=== PATIENT | female | born 1965 | race Caucasian/White ===

== ENCOUNTER → 2019-08-09 16:53 | Outpatient (CLI) | payer MEDICAID, SELFPAY ==
--- NOTE | ~2019-08-09 | XR_ITS ---
EXAMINATION: XR chest 2V DATE: 08/09/2019 17:23 INDICATION: Shortness of breath and cough TECHNIQUE: PA and lateral views of the chest are obtained. COMPARISON: 12/11/2018 FINDINGS: The lungs are free of acute opacities. There is no pleural effusion or pneumothorax. The ca rdiomediastinal silhouette is normal. There is moderate thoracic spondylosis. IMPRESSION: 1. No acute cardiopulmonary abnormality. Reviewed, dictated and finalized at location A.
== END ==
PROVIDERS: PCP Family Medicine; Visit Provider Family Medicine
DX: R06.02 Shortness of breath (principal); R05 Cough
CPT/HCPCS: 71046

== ENCOUNTER 2019-08-14 14:13 | Outpatient (CLI) | payer MEDICAID, SELFPAY ==
--- NOTE | 2019-08-19 11:29 | WPDPFTINT ---
PFT Interpretation PFT Interpretation: This PFT met all criteria for ATS standards and reproducibility FEV/FVC post bronchodilator 52% of predicted FEV1 52% or 1.42 liters FVC 76% or 2.73 liters FVC improved by 300 ml and 12% post bronchodilator TLC 105% RV 166% RV/TLC 58% DLCO 50% of predicted when adjusted for alveolar volume but not adjusted for hemoglobin Flow volume loops showed significant expiratory coving Impression: Moderate to severe airflow obstruction with good response to bronchodilators and air trapping. Diffusion capacity was moderately reduced. This pattern may fit that of Asthma or COPD or combination thereof. Clinical correlation is advised.
--- NOTE | 2019-08-19 11:33 | WPDSIXMINUTE ---
Six Minute Walk Six Minute Walk: The patients O2 sats started at 95% and dropped as low as 93% Total walk distance 335.28 meters conclusion: This patient does not qualify for home oxygen therapy
== END 2019-08-14 14:14 | disposition home or self-care (01) ==
PROVIDERS: PCP Family Medicine; Visit Provider Internal Medicine Critical Care Medicine
DX: J44.9 Chronic obstructive pulmonary disease, unspecified (principal); R06.02 Shortness of breath
CPT/HCPCS: 94060; 94618; 94726; 94729

== ENCOUNTER 2020-08-25 17:49 | Emergency (ER) | payer OTHER, SELFPAY ==
--- NOTE | ~2020-08-25 | XR_ITS ---
EXAMINATION: XR chest 1V EXAM DATE: 08/25/2020 18:53 INDICATION: Cough and fever since Tuesday. Hypertension, COPD. TECHNIQUE: Portable AP frontal chest x-ray was obtained. Comparison is made to prior examination from 08/09/2019. FINDINGS: Small amount right basilar reticulonodular airspace disease suspected, could be acute infec tious process. No confluent consolidation, pneumothorax or pleural effusion suspected. Cardiomediasti nal silhouette is normal. There are no osseous abnormalities identified. IMPRESSION: Small amount of right basilar reticulonodular airspace disease which could be acute infec tious process. Reviewed, dictated and finalized at location A. IMPRESSION: Small amount of right basilar reticulonodular airspace disease whic h could be acute infectious process.
[2020-08-25 17:52] VITALS: BP 121/87; PULSE 94; RESP 20; TEMP 37.8; O2SAT 92
[2020-08-25 18:53] LABS: Basophils Percent Auto 0.4 % (0.2-1.2); Eosinophils Percent Auto 0.1 % (0-4.4); Hemoglobin 15.6 g/dL (12.0-15.0); Immature Granulocyte Absolute 0.06 K/mm3 (0.00-0.031); Immature Granulocyte Percent A 0.9 % (0-0.5); Lymphocytes Absolute Auto 1.77 K/mm3 (0.9-3.2); Lymphocytes Percent Auto 25.3 % (18.3-44.2); Mean Corpuscular HGB Conc 33.2 g/dl (32-36); Mean Corpuscular Hemoglobin 29.8 pg (26-34); Mean Corpuscular Volume 89.9 fl (80-100); Mean Platelet Volume 10.1 fl (7.4-10.4); Monocytes Absolute Auto 0.6 K/mm3 (0.1-0.6); Neutrophils Absolute Auto 4.6 K/mm3 (1.3-6.7); Neutrophils Percent Auto 65.3 % (45.5-73.1); Platelet Count Result 148 k/mm3 (150-375); Red Blood Count 5.23 M/mm3 (4.2-5.4)
[2020-08-25 19:08] LABS: Alanine Aminotransferase 56 U/L (4-35); Albumin Level 4.2 g/dL (3.5-5.1); Alkaline Phosphatase 78 U/L (38-126); Anion Gap 8 mmol/L (8-16); Aspartate Amino Transferase 46 U/L (14-36); Bilirubin,Total 0.4 mg/dL (0.2-1.3); Blood Urea Nitrogen 15 mg/dL (7-17); Calcium 8.6 mg/dL (8.4-10.2); Carbon Dioxide 24 mmol/L (22-30); Chloride 102 mmol/L (98-107); Estimated CRCL calculation 75 ml/min; Estimated Glomerular Filt Rate > 60; Glucose 212 mg/dL (65-110); Potassium 4.2 mmol/L (3.4-5.0); Sodium 134 mmol/L (137-145)
--- NOTE | 2020-08-25 20:01 | ED.GENADULT ---
HPI - General Adult General Chief complaint: Fever Stated complaint: Fever, Cough Time Seen by Provider: 08/25/20 19:57 History of Present Illness HPI narrative: 75-year-old female presents the emergency room with chief complaint of fever and cough. The patient reports that she has not been vaccinated for COVID-19 reports she has history of COPD and asthma patient reports she smokes cigarettes. The patient states that for the last several days she has had a cough that has been sputum reports she has had fever body aches and generalized weakness. Patient reports that it is worsened with the cough improved with rest Related Data Home Medications Medication Instructions Recorded Confirmed albuterol sulfate 90 mcg/actuation 1 inhalation INHALATION Q4-6H PRN 07/06/19 breath activated powder inhaler amlodipine 10 mg tablet 10 mg PO DAILY 07/06/19 budesonide-formoterol HFA 160 2 puff INHALATION Q12H 07/06/19 mcg-4.5 mcg/actuation aerosol inhaler lisinopril 30 mg tablet 30 mg PO DAILY 07/06/19 oxycodone-acetaminophen 5 mg-325 1 tablet PO Q4H PRN 07/06/19 mg tablet Allergies Allergy/AdvReac Type Severity Reaction Status Date / Time No Known Allergies Allergy Mild Verified 08/25/20 17:54 Review of Systems Review of Systems: Narrative: A 10 system review of systems was completed on the patient and is negative except for what is stated in the HPI. Nursing and ancillary documentation was reviewed. PMFSH Past Medical History Medical History Chronic obstructive pulmonary disease Hypertension Shortness of breath on exertion Tobacco abuse Surgical History Surgical History H/O: hysterectomy History of tubal ligation Hx of tonsillectomy Social History Social History Smoking packs per day: 0.5 Smoking cigarettes per day: 10.0 Smoking status: Current every day smoker Tobacco type: cigarettes Gender identity (if verbalized by the patient): Female Exam Narrative: Exam Narrative: GENERAL: Well-appearing, well-nourished, and in no acute distress. HEAD: Normocephalic, atraumatic. EYES: PERRLA and EOMI. ENT: Nares clear, no rhinorrhea or epistaxis. Mucous membranes moist. NECK: Supple. CHEST: Clear to auscultation. No respiratory distress. HEART: Regular rate and rhythm. No murmur heard. Normal peripheral pulses. ABDOMEN: Soft, nontender, nondistended, normal active bowel sounds. EXTREMITIES: Normal range of motion. No edema. SKIN: Warm, dry, no rash. NEURO: No focal deficits. Alert and oriented x3. PSYCH: Normal mood and affect. Course Vital Signs Vital signs: Vital Signs Temperature 37.8 C H 08/25/20 17:52 Pulse Rate 94 08/25/20 17:52 Respiratory Rate 20 08/25/20 17:52 Blood Pressure 121/87 08/25/20 17:52 Pulse Oximetry 92 08/25/20 17:52 Temperature 37.8 C H 08/25/20 17:52 Pulse Rate 94 08/25/20 17:52 Respiratory Rate 20 08/25/20 17:52 Blood Pressure 121/87 08/25/20 17:52 Pulse Oximetry 92 08/25/20 17:52 Medical Decision Making Vital Signs Vital Signs: Vital Signs Temperature 37.8 C H 08/25/20 17:52 Pulse Rate 94 08/25/20 17:52 Respiratory Rate 20 08/25/20 17:52 Blood Pressure 121/87 08/25/20 17:52 Pulse Oximetry 92 08/25/20 17:52 Temperature 37.8 C H 08/25/20 17:52 Pulse Rate 94 08/25/20 17:52 Respiratory Rate 20 08/25/20 17:52 Blood Pressure 121/87 08/25/20 17:52 Pulse Oximetry 92 08/25/20 17:52 Lab Data Result diagrams: 08/25/20 18:46 08/25/20 18:46 Labs: Lab Results 08/25/20 08/25/20 Range/Units 18:46 18:46 WBC 7.0 (4.5-10.0) K/mm3 RBC 5.23 (4.2-5.4) M/mm3 Hgb 15.6 H (12.0-15.0) g/dL Hct 47.0 (37.0-47.0) % MCV 89.9 (80-100) fl MCH 29.8 (26-34) pg MCHC
[2020-08-25] MEDS: DOXYCYCLINE HYCLATE 100 MG TABLET PO (21:09)
[2020-08-25] MEDS: predniSONE 20 MG TABLET 60 MG PO (21:09)
[2020-08-25] MEDS: BENZONATATE 100 MG CAPSULE 200 MG PO (21:09)
[2020-08-25 21:14] VITALS: BP 108/82; PULSE 91; RESP 18; O2SAT 94
[2020-08-26 17:52] LABS: SARS-CoV-2 RNA PCR Positive
== END 2020-08-25 21:15 | disposition home or self-care (01) ==
LOC: ANHED 20:12
PROVIDERS: Emergency Medicine; Emergency Provider Emergency Medicine; PCP Family Medicine
DX: U07.1 COVID-19 (principal); J12.82 Pneumonia due to coronavirus disease 2019; J44.9 Chronic obstructive pulmonary disease, unspecified; I10 Essential (primary) hypertension; F17.210 Nicotine dependence, cigarettes, uncomplicated
CPT/HCPCS: 36415; 71045; 80053; 85025; 99283; A9270; C9803; J7512; U0003; U0005

== ENCOUNTER → 2020-09-12 01:28 | Outpatient (CLI) | payer OTHER, SELFPAY ==
[2020-09-13 02:16] LABS: SARS-CoV-2 RNA PCR Negative
== END ==
PROVIDERS: PCP Family Medicine; Visit Provider Physician Assistant
DX: R68.89 Other general symptoms and signs (principal); Z20.822 Contact with and (suspected) exposure to COVID-19
CPT/HCPCS: C9803; U0003; U0005

== ENCOUNTER 2020-11-18 16:15 | Emergency (ER) | payer OTHER, SELFPAY ==
[2020-11-18 16:28] VITALS: BP 143/83; PULSE 79; RESP 20; TEMP 37; O2SAT 97
--- NOTE | 2020-11-18 16:31 | ED.FEMALEGU ---
HPI - Female Genitourinary General Chief complaint: Urogenital-Female Stated complaint: UTI Source: patient and RN notes reviewed Mode of arrival: ambulatory Limitations: no limitations History of Present Illness HPI Narrative: Tameka is a 55-year-old female arrived ambulatory to the [facility] today with complaints of urinary frequency and painful urination starting on Tuesday. Patient states she was just treated 2 months ago with Macrobid and states she doesn't feel like she ever got over it. She has had continued dysuria and frequency off and on over the last 2 months. Patient denies fever denies chills. States she has been taking Azo since Tuesday. MD elicited complaint: dysuria Related Data Home Medications Medication Instructions Recorded Confirmed albuterol sulfate 90 mcg/actuation 1 inhalation INHALATION Q4-6H PRN 07/06/19 breath activated powder inhaler amlodipine 10 mg tablet 10 mg PO DAILY 07/06/19 budesonide-formoterol HFA 160 2 puff INHALATION Q12H 07/06/19 mcg-4.5 mcg/actuation aerosol inhaler lisinopril 30 mg tablet 30 mg PO DAILY 07/06/19 oxycodone-acetaminophen 5 mg-325 1 tablet PO Q4H PRN 07/06/19 mg tablet Allergies Allergy/AdvReac Type Severity Reaction Status Date / Time No Known Allergies Allergy Mild Verified 11/18/20 17:11 Review of Systems Review of Systems: CONSTITUTIONAL: Denies body aches, fever, chills, or sweats. EYES: Denies visual changes, redness, or discharge. ENT: Denies rhinorrhea, congestion, sore throat, or otalgia. CARDIOVASCULAR: Denies chest pain, palpitations, or edema. RESPIRATORY: Denies cough or dyspnea. GASTROINTESTINAL: Denies abdominal pain, nausea, vomiting, or diarrhea. GENITOURINARY: + dysuria, + frequency, denies hematuria. SKIN: Denies rash, itching, or wounds. MUSCULOSKELETAL: Denies back pain, joint pain, or myalgia. NEUROLOGIC: Denies headache, numbness, tingling, or weakness. PSYCH: Denies depression or anxiety. [facility] Past Medical History Medical History Chronic obstructive pulmonary disease Hypertension Shortness of breath on exertion Tobacco abuse Surgical History Surgical History H/O: hysterectomy History of tubal ligation Hx of tonsillectomy Social History Social History Smoking packs per day: 0.5 Smoking cigarettes per day: 10.0 Smoking status: Current every day smoker Tobacco type: cigarettes Gender identity (if verbalized by the patient): Female Comments At time of signature, I have reviewed and agree with nursing past medical, surgical, social and family history unless otherwise noted. Please see nursing chart for further information. There is no relevant family history pertinent to the presenting complaint Exam Narrative: GENERAL: Well-appearing, well-nourished, and in no acute distress. HEAD: Normocephalic, atraumatic. EYES: EOMI. No redness or drainage. Conjunctivae normal. ENT: Mucous membranes pink and moist. Nares clear. No rhinorrhea. TMs normal bilaterally. Throat normal. Uvula midline. NECK: Normal AROM. Supple. No lymphadenopathy. CHEST: No respiratory distress. Clear to auscultation.. ABDOMEN: Soft, nontender, nondistended, negative for CVA tenderness bilaterally. MUSCULOSKELETAL: No bony tenderness. EXTREMITIES: Normal range of motion. No edema. SKIN: Warm, dry, no rash. Capillary refill normal. Normal skin turgor. NEURO: No focal deficits. Alert and oriented x3. Gait steady. PSYCH: Normal affect. No signs of depression or anxiety. Course Vital Signs Vital signs: Vital Signs Temperature 37.0 C 11/18/20 16:28 Pulse Rate 79 11/18/20 16:28 Respiratory Rate 20 11/18/20 16:28 Blood Pressure 143/83 H 11/18/20 16:28 Pulse Oximetry 97 11/18/20 16:28 Temperature 37.0 C 11/18/20 16:28 Pulse Rate 79
== END 2020-11-18 17:16 | disposition home or self-care (01) ==
PROVIDERS: Emergency Provider Nurse Practitioner Family; PCP Family Medicine
DX: N39.0 Urinary tract infection, site not specified (principal); F17.210 Nicotine dependence, cigarettes, uncomplicated; J44.9 Chronic obstructive pulmonary disease, unspecified; I10 Essential (primary) hypertension
CPT/HCPCS: 81003; 87077; 87086; 87088; 87186; 99213; G0463

== ENCOUNTER 2021-09-17 10:34 | Outpatient (CLI) | payer OTHER, SELFPAY ==
--- NOTE | ~2021-09-17 | MM_ITS ---
EXAMINATION: MM screening mohit BI w yasmin HISTORY: Screening mammogram, family history of breast cancer in her mother. TECHNIQUE: Craniocaudal and mediolateral oblique 3-D tomosynthesis images were obtained and synthetic 2-D images were generated. CAD analysis was submitted and interpreted. COMPARISON: 01/26/2019, 12/29/2018 BREAST PARENCHYMAL COMPOSITION: There are scattered areas of fibroglandular density. FINDINGS: There is no suspicious mass, calcification, or architectural distortion to suggest malignan cy in either breast. There has been no suspicious interval change. IMPRESSION: 1. No mammographic evidence of malignancy. 2. Recommend routine screening mammography in one year. BI-RADS Category 1: Negative Reviewed, dictated and finalized at location A.
== END 2021-09-17 10:35 | disposition home or self-care (01) ==
PROVIDERS: PCP Family Medicine; Visit Provider Physician Assistant
DX: Z12.31 Encounter for screening mammogram for malignant neoplasm of breast (principal)
CPT/HCPCS: 77063; 77067

== ENCOUNTER 2022-08-13 14:28 | Emergency (ER) | payer MEDICAID, SELFPAY ==
[2022-08-13 14:30] VITALS: BP 134/90; PULSE 86; RESP 18; TEMP 36.2; O2SAT 98
--- NOTE | 2022-08-13 14:56 | ED.FEMALEGU ---
HPI - Female Genitourinary General Chief complaint: Urogenital-Female Stated complaint: uti symptoms Time Seen by Provider: 08/13/22 14:51 Source: patient and RN notes reviewed Mode of arrival: ambulatory Limitations: no limitations History of Present Illness HPI Narrative: Patient presents today with a 10 day history of urinary frequency and dysuria. Denies any additional symptoms to include abdominal pain, flank pain, fever, nausea vomiting. She has been taking azo for the past 5 days. States symptoms began after she had intercourse her after being celibate for the past 3 years. Related Data Home Medications Medication Instructions Recorded Confirmed albuterol sulfate 90 mcg/actuation 1 inhalation inhalation Q4-6H PRN 07/06/19 08/13/22 breath activated powder inhaler Shortness Of Breath amlodipine 10 mg tablet 10 mg PO DAILY 07/06/19 08/13/22 budesonide-formoterol HFA 160 2 puff inhalation Q12H 07/06/19 08/13/22 mcg-4.5 mcg/actuation aerosol inhaler (Symbicort) lisinopril 30 mg tablet 30 mg PO DAILY 07/06/19 08/13/22 diclofenac sodium 75 mg 75 mg PO DAILY 11/18/20 08/13/22 tablet,delayed release ipratropium bromide 17 2 puff inhalation TID 11/18/20 08/13/22 mcg/actuation HFA aerosol inhaler (Atrovent HFA) atorvastatin 40 mg tablet 40 mg PO HS 08/13/22 08/13/22 empagliflozin 25 mg tablet 25 mg PO DAILY 08/13/22 08/13/22 (Jardiance) liraglutide 0.6 mg/0.1 mL (18 mg/3 1.2 mg subcut DAILY 08/13/22 08/13/22 mL) subcutaneous pen injector (Victoza 2-Tyson) losartan 50 mg-hydrochlorothiazide 1 tablet PO DAILY 08/13/22 08/13/22 12.5 mg tablet venlafaxine 75 mg capsule,extended 75 mg PO DAILY 08/13/22 08/13/22 release 24 hr Allergies Allergy/AdvReac Type Severity Reaction Status Date / Time No Known Allergies Allergy Mild Verified 08/13/22 14:44 Review of Systems Review of Systems: CONSTITUTIONAL: Denies body aches, fever, chills, or sweats. EYES: Denies visual changes, redness, or discharge. ENT: Denies rhinorrhea, congestion, sore throat, or otalgia. CARDIOVASCULAR: Denies chest pain, palpitations, or edema. RESPIRATORY: Denies cough or dyspnea. GASTROINTESTINAL: Denies abdominal pain, nausea, vomiting, or diarrhea. GENITOURINARY: + dysuria, frequency. SKIN: Denies rash, itching, or wounds. MUSCULOSKELETAL: Denies back pain, joint pain, or myalgia. NEUROLOGIC: Denies headache, numbness, tingling, or weakness. PSYCH: Denies depression or anxiety. [facility] Past Medical History Medical History (Updated 08/13/22 @ 15:00 by Thelma Myers, [employer], ) Chronic obstructive pulmonary disease Diabetes Hypertension Shortness of breath on exertion Tobacco abuse Surgical History Surgical History H/O: hysterectomy History of tubal ligation Hx of tonsillectomy Social History Social History Smoking packs per day: 0.5 Smoking cigarettes per day: 10.0 Smoking status: Current every day smoker Tobacco type: cigarettes Gender identity (if verbalized by the patient): Female Comments At time of signature, I have reviewed and agree with nursing past medical, surgical, social and family history unless otherwise noted. Please see nursing chart for further information. There is no relevant family history pertinent to the presenting complaint Exam Narrative: GENERAL: Well-appearing, well-nourished, and in no acute distress. HEAD: Normocephalic, atraumatic. EYES: EOMI. No redness or drainage. Conjunctivae normal. ENT: Mucous membranes pink and moist. NECK: Normal AROM. CHEST: No respiratory distress. Clear to auscultation. HEART: Regular rate and rhythm. No murmur appreciated. ABDOMEN: Soft, nontender, nondistended, normal active bowel sounds. EXTREMITIES: Normal range of motion. No edema. SKIN: Warm, dry, no rash. Capillary refill normal. Normal
== END 2022-08-13 15:05 | disposition home or self-care (01) ==
PROVIDERS: Emergency Provider Nurse Practitioner; PCP Physician Assistant
DX: N30.01 Acute cystitis with hematuria (principal); F17.210 Nicotine dependence, cigarettes, uncomplicated; J44.9 Chronic obstructive pulmonary disease, unspecified; E11.9 Type 2 diabetes mellitus without complications; I10 Essential (primary) hypertension
CPT/HCPCS: 81003; 87077; 87086; 87186; 99213; G0463

== ENCOUNTER 2024-12-20 09:22 | Emergency (ER) | payer SELFPAY ==
--- NOTE | ~2024-12-20 | XR_ITS ---
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 hx COPD COMPARISON: No comparisons available. Technique: 2 views obtained. Findings: Trace effusions with small basilar infiltrates. No pneumothorax. Heart is normal size. Mediastinal and hilar contours are within normal limits. Bony thorax no acute abnormality. Impression: Early bilateral pneumonia Reviewed, dictated and finalized at location P. GRAPHIC ANALYST Impression: Early bilateral pneumonia
[2024-12-20 09:32] VITALS: BP 111/80; PULSE 92; RESP 18; TEMP 36.9; O2SAT 97
--- NOTE | 2024-12-20 09:48 | ED.URI ---
HPI - URI/Sore Throat General Chief Complaint: Upper Respiratory Infection Stated Complaint: URI Time Seen by Provider: 12/20/24 09:34 Source: patient and RN notes reviewed Mode of arrival: ambulatory Limitations: no limitations History of Present Illness HPI Narrative: 59-year-old female patient with history of COPD and diabetes presents today with a 3-4 day history of subjective fever, fatigue, shortness of breath, productive cough, rhinorrhea, nasal congestion. She has been using NyQuil, Tylenol, and her albuterol inhaler with some short-term improvement. Patient is supposed to be taking is Symbicort as well but cannot afford it due to insurance concerns. Her symptoms have been worsening since onset. Related Data Home Medications ?Medication ?Instructions ?Recorded ?Confirmed ?Last Taken ?Type albuterol sulfate 90 mcg/actuation 1 inhalation inhalation Q4-6H PRN 07/06/19 08/13/22 Unknown History breath activated powder inhaler Shortness Of Breath amlodipine 10 mg tablet 10 mg PO DAILY 07/06/19 08/13/22 Unknown History atorvastatin 40 mg tablet 40 mg PO HS 08/13/22 08/13/22 Unknown History losartan 50 mg-hydrochlorothiazide 1 tablet PO DAILY 08/13/22 08/13/22 Unknown History 12.5 mg tablet venlafaxine 75 mg capsule,extended 75 mg PO DAILY 08/13/22 08/13/22 Unknown History release 24 hr calcium 250 mg tablet mg PO 12/20/24 Unknown History [id number] oil-omega 3-vit E cap PO 12/20/24 Unknown History 50 mg-550 mg-300 mg-30 unit capsule magnesium 200 mg tablet 200 mg PO DAILY 12/20/24 12/20/24 Unknown History mecobalamin (vitamin B12) 1,000 1,000 mcg PO DAILY 12/20/24 12/20/24 Unknown History mcg chewable tablet omega 2-mqi-gyg-fish oil 1,000 mg 1 cap PO DAILY 12/20/24 12/20/24 Unknown History (120 mg-180 mg) capsule (Fish Oil) potassium 75 mg tablet mg PO 12/20/24 Unknown History vitamin E 670 mg (1,000 unit) 670 mg PO DAILY 12/20/24 12/20/24 Unknown History capsule Allergies Allergy/AdvReac Type Severity Reaction Status Date / Time No Known Allergies Allergy Mild Verified 12/20/24 09:31 [facility] Past Medical History Medical History Diabetes Chronic obstructive pulmonary disease Shortness of breath on exertion Tobacco abuse Hypertension Surgical History Surgical History H/O: hysterectomy History of tubal ligation Hx of tonsillectomy Social History Social History Smoking packs per day: 0.5 Smoking cigarettes per day: 10.0 Smoking status: Current every day smoker Tobacco type: cigarettes Gender identity (if verbalized by the patient): Female Comments At time of signature, I have reviewed and agree with nursing past medical, surgical, social and family history unless otherwise noted. Please see nursing chart for further information. There is no relevant family history pertinent to the presenting complaint Exam Narrative: GENERAL: Well-appearing, well-nourished, and in no acute distress. HEAD: Normocephalic, atraumatic. EYES: EOMI. No redness or drainage. Conjunctivae normal. ENT: Mucous membranes pink and moist. Nares congested with rhinorrhea. TMs normal bilaterally. Throat mildly erythematous without edema or exudate. Uvula midline. NECK: Normal AROM. Supple. No lymphadenopathy. CHEST: No respiratory distress. Expiratory wheezing throughout. Slight crackling in the left lower lobe, diminished in the bilateral bases. HEART: Regular rate and rhythm. No murmur appreciated. EXTREMITIES: Normal range of motion. No edema. SKIN: Warm, dry, no rash. Capillary refill normal. Normal skin turgor. NEURO: No focal deficits. Alert and oriented x3. Gait steady. PSYCH: Normal affect. No signs of depression or anxiety. Course Course Level of Care: Express Care Visit Vital Signs Vital signs: Vital Signs Temperature 98.4 F 12/20/24 09:32 Pulse Rate 92 12/20/24 09:32 Respiratory Rate 18 12/20/24 09:32 Blood Pressure 111/80 12/20/24 09:32 Pulse Oximetry 97 12/20/24 09:32 Oxygen Delivery Room Air 12/20/24 09:32 Temperature 98.4 F 12/20/24 09:32 Pulse Rate 92 12/20/24 09:32 Respiratory Rate 18 12/20/24 09:32 Blood Pressure 111/80 12/20/24 09:32 Pulse Oximetry 97 12/20/24 09:32 Oxygen Delivery Room Air 12/20/24 09:32 Reviewed MDM - URI/Sore Throat MDM Narrative Medical decision making narrative: 59-year-old female patient with history of COPD and diabetes presents today with a 3-4 day history of subjective fever, fatigue, shortness of breath, productive cough, rhinorrhea, nasal congestion. She has been using NyQuil, Tylenol, and her albuterol inhaler with some short-term improvement. Patient is supposed to be taking is Symbicort as well but cannot afford it due to insurance concerns. Her symptoms have been worsening since onset. Upon onset, patient has some mild nasal congestion rhinorrhea with a mildly erythematous throat. Expiratory wheezing throughout. Slight crackling in the left lower lobe, diminished in the bilateral bases. Chest x-ray shows early pneumonia in the bilateral bases. Patient was given a DuoNeb, which was helpful. Breath sounds improved after treatment. Patient will be treated for community-acquired pneumonia with 5 days of azithromycin and Augmentin as well as a burst of prednisone for COPD exacerbation. Patient agrees with plan. Vital signs stable. Anticipatory guidance and ED precautions given. Differential Diagnosis Differential diagnosis: Likely upper respiratory infection and other (Pneumonia, COPD exacerbation) Imaging Data Radiologist's impression: ITS Impressions Chest X-Ray 12/20/24 09:56 Impression: Early bilateral pneumonia Critical Care Time Critical Care Time Critical Care Time: No Discharge Plan Discharge Clinical Impression: COPD exacerbation Pneumonia Qualifiers: Pneumonia type: due to unspecified organism Laterality: bilateral Lung location: lower lobe of lung Qualified Code(s): J18.9 - Pneumonia, unspecified organism Patient Disposition: Home Condition: Stable Instructions: Antibiotic Form, Community Acquired Pneumonia (DC) Additional Instructions: Your x-ray showed early pneumonia of the bottoms of both of your lungs. Please take both antibiotics at the same time as prescribed. Take the prednisone daily in the morning. Continue your albuterol inhaler as previously prescribed. [facility] regarding a new primary care provider. Go to the ER if symptoms worsen. Patient Language: Vietnamese Prescriptions: New amoxicillin-pot clavulanate 875-125 mg tablet 1 tablet PO Q12H 5 Days Qty: 10 0RF azithromycin 250 mg tablet 250 mg PO DAILY Qty: 6 0RF Rx Instructions: take 500 mg today (day 1), then 250 mg daily on days 2-5. prednisone 50 mg tablet 50 mg PO DAILY 5 Days Qty: 5 0RF albuterol sulfate 90 mcg/actuation HFA aerosol inhaler 2 inh inhalation Q4-6H PRN (Reason: shortness of breath or wheezing) Qty: 8.5 0RF No Action atorvastatin 40 mg tablet 40 mg PO HS venlafaxine 75 mg capsule,extended release 24hr 75 mg PO DAILY losartan-hydrochlorothiazide 50-12.5 mg tablet 1 tablet PO DAILY calcium 250 mg tablet PO potassium 75 mg tablet PO magnesium 200 mg tablet 200 mg PO DAILY vitamin E 670 mg (1,000 unit) capsule 670 mg PO DAILY mecobalamin (vitamin B12) 1,000 mcg tablet,chewable 1,000 mcg PO DAILY omega 6-vgb-dpo-fish oil [Fish Oil] 1,000 (120-180) mg capsule 1 cap PO DAILY co [id number] oil-omega 3-E [id number] zi-qi-zy-unit capsule PO amlodipine 10 mg tablet 10 mg PO DAILY albuterol sulfate 90 mcg/actuation aerosol powdr breath activated 1 inhalation INHALATION Q4-6H PRN (Reason: Shortness Of Breath) Follow-up/Referrals: Eric,OSMAN Ozuna [Primary Care Provider, Family Practice] Time of Disposition: 10:23
--- OUTSIDE RECORDS SUMMARY | 2024-12-20 09:51 | XMS_ITS | Clinical Summary ---
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 Name Role Phone Nickie Reyes Primary Care Provider + Allergies Active Allergy Reactions Criticality Noted Date Comments Bupropion Headache Low 09/28/2023 Medications albuterol HFA (PROVENTIL HFA,VENTOLIN HFA,PROAIR HFA) 90 mcg/actuation inhaler Inhale 2 puffs 07/28/2023 Active amLODIPine (NORVASC) 10 mg tablet Take 1 tablet (10 mg total) by mouth daily 07/12/2023 Active Symbicort 160-4.5 mcg/actuation inhaler INHALE 2 PUFFS INTO THE LUNGS TWICE A DAY 08/08/[address] (VOLTAREN) 75 mg EC tablet Take 1 tablet (75 mg total) by mouth daily 08/08/2023 Active Jardiance 25 mg tablet TAKE 1 TABLET BY MOUTH EVERY DAY FOR 30 DAYS 08/08/2023 Active Atrovent HFA 17 mcg/actuation inhaler INHALE 2 PUFFS BY MOUTH 3 TIMES A DAY 07/28/2023 Active dulaglutide (Trulicity) 4.5 mg/0.5 mL pen injector Inject 0.5 mL (4.5 mg total) under the skin every 7 days Active venlafaxine (EFFEXOR) 75 mg tablet Take 1 tablet (75 mg total) by mouth 2 (two) times a day Active atorvastatin (LIPITOR) 40 mg tablet Take 1 tablet (40 mg total) by mouth daily Active Active Problems Problem Noted Date Diagnosed Date Screening for colon cancer 08/17/2023 Encounters Date Type Department Care Team Description 11/01/2024 Documentation [facility] OP Physical Therapy [address] [place] [phone] Kenia Page, PT No Show 10/31/2024 10:32 AM CDT - 10/31/2024 11:59 PM CDT Hospital Encounter [facility] [address] [place] [phone] Screening mammogram, encounter for Discharge Disposition: Discharge to home or self care 10/12/2024 12:45 PM CDT Therapy [facility] OP Physical Therapy [address] [place] [address] 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, 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 Low back pain, unspecified back pain laterality, unspecified chronicity, unspecified whether sciatica present (Primary Dx) 10/10/2024 Plan of Care Documentation [facility] OP Physical Therapy [address] [place] [phone] 10/04/2024 11:00 AM CDT Therapy [facility] OP Physical Therapy [address] [place] [address] Parul Junior, PT Low back pain, unspecified back pain laterality, unspecified chronicity, unspecified whether sciatica present (Primary Dx) 09/21/2024 12:21 PM CDT - 09/21/2024 11:59 PM CDT Hospital Encounter [facility] [address] [place] [phone] Lumbar sprain, subsequent encounter Discharge Disposition: Discharge to home or self care 09/20/2024 8:48 AM CDT - 09/20/2024 11:59 PM CDT Hospital Encounter [facility] [address] [place] [address] Low back pain, unspecified back pain laterality, unspecified chronicity, unspecified whether sciatica present Discharge Disposition: Discharge to home or self care 09/20/2024 8:15 AM CDT Therapy [facility] OP Physical Therapy [address] [address] Parul Junior, PT Low back pain, unspecified back pain laterality, unspecified chronicity, unspecified whether sciatica present (Primary Dx) from Last 3 Months Surgical History Surgery Date Site/Laterality Comments HYSTERECTOMY CERVICAL BIOPSY W/ LOOP ELECTRODE EXCISION TONSILLECTOMY SECTION, CLASSIC Medical History Medical History Date Comments COPD (chronic obstructive pulmonary disease) Asthma Hypertension Hyperlipidemia Type 2 diabetes mellitus Constipation Dyspnea Addiction hx of crack, 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 Monthly or less 09/30/2023 Q2: How many drinks containi ng alcohol do you have on a typical day when you are drinking? 5 or 6 09/30/2023 Q3: How often do you have si x or more drinks on one occasion? Monthly 09/30/2023 Personal Safety Answer Date Recorded Have you ever been in or are you currently in a harmful physical or emotional relationship or is someone making you feel afraid or unsafe? 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 Gender Identity Not on file Sexual Orientation Not on file Obstetrics History Para Term AB IAB SAB Ectopic Multiple Livin g Live Births 7 5 Date Outcome GA Total Labor Labor/2nd/3rd Weight Sex Type Anes PTL Joseline A1 A5 Name Clin Last Filed Vital Signs Vital Sign Reading Time Taken Comments Blood Pressure 127/95 09/30/2023 2:48 PM CDT Pulse 72 09/30/2023 2:48 PM CDT Temperature 37.1 C (98.7 F) 09/30/2023 2:27 PM CDT Respiratory Rate 13 09/30/2023 2:48 PM CDT Oxygen Saturation 100% 09/30/2023 2:45 PM CDT Inhaled Oxygen Concentration - - Weight 77.8 kg (171 lb 9.6 oz) 10/31/2024 10:41 AM CDT Height 170.2 cm (5' 7) 10/31/2024 10:41 AM CDT Body Mass Index 26.88 10/31/2024 10:41 AM CDT Plan of Treatment Health Maintenance Due Date Last Done Comments Depression Screening 1965 Hepatitis C Screening 1965 Regular Well Visit/Exam 18-64 1985 Zoster Vaccine (1 of 2) 2017 Pneumococcal vaccine <65 (2 of 2 - PCV) 07/30/2022 0 07/30/2021 Lung Cancer Screening 08/13/2024 02/15/2024 Influenza Vaccine (#1) 2024 Breast Cancer Screening-Mammogram 10/31/2025 025 Colon Cancer Screening-Colonoscopy 09/29/20262023 DTaP/Tdap/Td Vaccine (2 - Td or Tdap) 10/18/203212/2022 Hepatitis B Screening Completed 08/24/2022 Procedures Procedure Name Priority Date/Time Associated Diagnosis Comments SCREENING MAMMOGRAM BILATERAL W JURGEN Schedule Routine, Read Routine (OP Routine) 10/31/2024 10:59 AM CDT Screening mammogram, encounter for XR HIPS BILATERAL W PELVIS 5 OR MORE VIEWS Schedule Routine, Read Routine (OP Routine) 09/21/2024 12:46 PM CDT Lumbar sprain, subsequent encounter XR SPINE LUMBAR 2 OR 3 VIEWS Schedule Routine, Read Routine (OP Routine) 09/20/2024 9:09 AM CDT Low back pain, unspecified back pain laterality, unspecified chronicity, unspecified whether sciatica present CT LUNG CANCER SCREENING Schedule Routine, Read Routine (OP Routine) 02/15/2024 5:36 PM BLACKSMITH HELPER Nicotine dependence, uncomplicated, unspecified nicotine product type COLONOSCOPY 09/30/2023 1:29 PM CDT from Last 3 Months or Most Recently Relevant to Health Maintenance Results * Screening Mammogram Bilateral W Jurgen (10/31/2024 10:59 AM CDT) Anatomical Region Laterality Modality Breast Bilateral Mammography Impressions 11/01/2024 4:11 PM CDT Bilateral No evidence of malignancy in either breast. OVERALL BI-RADS FINAL ASSESSMENT: 1 - Negative RECOMMENDATION: Recommend bilateral annual screening mammography. Narrative 11/01/2024 4:11 PM CDT EXAMINATION: Screening Mammogram Bilateral W Jurgen: 10/31/2024 COMPARISON: Relevant prior studies available at the time of interpretation were reviewed, including the most recent mammogram on: 09/17/2021. TECHNIQUE: Mammography was performed with 2D and 3D digital breast tomosynthesis (DBT) images. CAD was utilized. BREAST PARENCHYMAL COMPOSITION: There are scattered areas of fibroglandular density. FINDINGS: Bilateral There is no suspicious mass, calcification, or architectural distortion in either breast. [facility] IMG MAMMO PROCEDURES Fin al Result * XR Hips Bilateral 5 or More Views W Pelvis (09/21/2024 12:46 PM CDT) Anatomical Region Laterality Modality Lower Extremities, Hip, Pelvis Bilateral C omputed Radiography 09/23/2024 10:4 6 AM CDT Narrative 09/23/2024 10:48 AM CDT EXAM DESCRIPTION: 1. XR HIPS BILATERAL 5 OR MORE VIEWS W PELVIS REASON FOR STUDY: Bilateral hip pain FINDINGS: Five views submitted without comparison. No acute fracture. Alignment is normal. Minimal bilateral hip osteoarthritis. Severe pubic symphysis osteoarthritis. IMPRESSION: 1. Minimal bilateral hip osteoarthritis. THIS IS AN ELECTRONICALLY VERIFIED FINAL REPORT 09/23/2024 10:48 AM - Electronically signed by Jay Jay Judd M.D. T: Report ID: [id number] Reading Location: [id number] Procedure Note Jay Jay Judd MD - 09/23/2024 EXAM DESCRIPTION: 1. XR HIPS BILATERAL 5 OR MORE VIEWS W PELVIS REASON FOR STUDY: Bilateral hip pain FINDINGS: Five views submitted without comparison. No acute fracture. Alignment is normal. Minimal bilateral hip osteoarthritis. Severe pubic symphysis osteoarthritis. IMPRESSION: 1. Minimal bilateral hip osteoarthritis. THIS IS AN ELECTRONICALLY VERIFIED FINAL REPORT 09/23/2024 10:48 AM - Electronically signed by Jay Jay Judd M.D. T: Report ID: [id number] Reading Location: [id number] [facility] IMG XR PROCEDURES Final Result * XR Spine Lumbar 2 or 3 Views (09/20/2024 9:09 AM CDT) Anatomical Region Laterality Modality Spine N/A Computed Radiogr aphy 09/23/2024 10:4 8 AM CDT Narrative 09/23/2024 10:49 AM CDT EXAM DESCRIPTION: 1. XR SPINE LUMBAR 2 OR 3 VIEWS REASON FOR STUDY: lester back pain unspecified M54.50 Twisted pelvis, right hip is higher than left, mid to low back pain x 40 years FINDINGS: Three views submitted without comparison. No acute fracture. Mild rotary dextrocurvature of the lumbar spine. Mild L2-L4 and severe L4-S1 degenerative disc disease with severe inferior lumbar facet osteoarthritis. Arterial atherosclerosis and bilateral hip osteoarthritis. IMPRESSION: 1. Mild L2-L4 and severe L4-S1 degenerative disc disease with severe inferior lumbar facet osteoarthritis. THIS IS AN ELECTRONICALLY VERIFIED FINAL REPORT 09/23/2024 10:49 AM - Electronically signed by Jay Jay Judd M.D. T: Report ID: [id number] Reading Location: [id number] Procedure Note Jay Jay Judd MD - 09/23/2024 EXAM DESCRIPTION: 1. XR SPINE LUMBAR 2 OR 3 VIEWS REASON FOR STUDY: lester back pain unspecified M54.50 Twisted pelvis, right hip is higher than left, mid to low back pain x 40years FINDINGS: Three views submitted without comparison. No acute fracture. Mild rotary dextrocurvature of the lumbar spine. Mild L2-L4 and severe L4-S1 degenerative disc disease with severe inferiorlumbar facet osteoarthritis. Arterial atherosclerosis and bilateral hip osteoarthritis. IMPRESSION: 1. Mild L2-L4 and severe L4-S1 degenerative disc disease with severe inferior lumbar facet osteoarthritis. THIS IS AN ELECTRONICALLY VERIFIED FINAL REPORT 09/23/2024 10:49 AM - Electronically signed by Jya Jay Judd M.D. T: Report ID: [id number] Reading Location: [id number] [facility] IMG XR PROCEDURES Final Result * CT Lung Cancer Screening (02/15/2024 5:36 PM BLACKSMITH HELPER) Anatomical Region Laterality Modality Chest N/A Computed Tomogra phy 02/17/2024 7:40 AM BLACKSMITH HELPER Narrative 02/17/2024 7:51 AM BLACKSMITH HELPER EXAM DESCRIPTION: CT LUNG CANCER SCREENING REASON FOR STUDY: Screening CT of the chest in a current smoker with a 48 pack year smoking history. Additional history: None. TECHNIQUE: Low dose CT scan of the chest was performed without intravenous contrast using helical scanning technique. The exam extends from the lung apices through the lung bases. Automatic exposure control was used as a dose optimization technique. NOTE: This study was performed for the specific purposes of lung cancer screening and is not an alternative to diagnostic chest CT. RADIATION DOSE: CT dose index volume (CTDIvol) = 2.11 mGy COMPARISON: Diagnostic chest CT dated 07/03/2019 FINDINGS: SMOKING RELATED LUNG DISEASE: Mild emphysema LUNG NODULES: A 5 mm right upper lobe nodule appears slightly more dense compared to the prior examination (62). Other tiny right upper lobe nodules are stable. Possible new 6 mm left upper lobe nodule (44). Previously a more linear nodule was seen inferiorly within the left upper lobe in 2020. OTHER: Mild scarring within the inferior lingula. Prominent mediastinal lymph nodes are grossly stable. No hilar lymphadenopathy. The heart is normal in size. Small pericardial effusion. No significant coronary calcification. Aorta is nonaneurysmal. No axillary lymphadenopathy. No chest wall mass is seen. Images of the upper abdomen demonstrate bilateral adrenal gland adenomas. Bone windows demonstrate no suspicious lytic or sclerotic lesion. No acute fracture seen. IMPRESSION: 1. Possible new 6 mm left upper lobe nodule compared to 2020. Lung-RADS category 4A: Suspicious. Recommendation: Low dose CT of chest in 6 months. THIS IS AN ELECTRONICALLY VERIFIED FINAL REPORT 02/17/2024 7:51 AM - Electronically signed by Maynor DONG T: Report ID: [id number] Reading Location: [place] [id number] Procedure Note Maynor Cornejo MD - 02/17/2024 EXAM DESCRIPTION: CT LUNG CANCER SCREENING REASON FOR STUDY: Screening CT of the chest in a current smoker with a48 pack year smoking history. Additional history: None. TECHNIQUE: Low dose CT scan of the chest was performed without intravenous contrast using helical scanning technique. The exam extends from the lung apices through the lung bases. Automatic exposure control was used as adose optimization technique. NOTE: This study was performed for the specific purposes of lung cancer screening and is not an alternative to diagnostic chest CT. RADIATION DOSE: CT dose index volume (CTDIvol) = 2.11 mGy COMPARISON: Diagnostic chest CT dated 07/03/2019 FINDINGS: SMOKING RELATED LUNG DISEASE: Mild emphysema LUNG NODULES: A 5 mm right upper lobe nodule appears slightly more dense compared to the prior examination (62). Other tiny right upper lobenodules are stable. Possible new 6 mm left upper lobe nodule (44). Previously yolette linear nodule was seen inferiorly within the left upper lobe in 2020. OTHER: Mild scarring within the inferior lingula. Prominent mediastinal lymph nodes are grossly stable. No hilar lymphadenopathy. The heart is normal in size. Small pericardial effusion. No significant coronary calcification. Aorta is nonaneurysmal. No axillary lymphadenopathy. No chest wall mass is seen. Images of the upper abdomen demonstratebilateral adrenal gland adenomas. Bone windows demonstrate no suspicious lytic or sclerotic lesion. No acute fracture seen. IMPRESSION: 1. Possible new 6 mm left upper lobe nodule compared to 2020. Lung-RADS category 4A: Suspicious. Recommendation: Low dose CT of chest in 6 months. THIS IS AN ELECTRONICALLY VERIFIED FINAL REPORT 02/17/2024 7:51 AM - Electronically signed by Maynor Cornejo M.D. AG T: Report ID: [id number] Reading Location: [id number] [facility] IMG CT PROCEDURES Final Result * Colonoscopy (09/30/2023 1:29 PM CDT) Anatomical Region Laterality Modality Other Narrative Procedure Note Easton Campos MD - 09/30/2023 1:[address] [facility] GI ENDOSCOPY Patient Name: Tameka Hackett Procedure Date: 09/30/2023 1:29 PM Date of : 1965 Admit Type: Outpatient Age: 58 Gender: Female Attending MD: Easton Campos M.D. Room: [facility] ENDOSCOPY ROOM 06 Note Status: Finalized Procedure: Colonoscopy Indications: Screening for colorectal malignant neoplasm Referring MD: Providers: Easton Campos M.D. Medicines: Monitored Anesthesia Care Complications: No immediate complications. Estimated Blood Loss: Estimated blood loss: none. Procedure: Pre-Anesthesia Assessment: - Prior to the procedure, a History and Physicalwas performed, and patient medications and allergieswere reviewed. The risks and benefits of the procedureand the sedation options and risks were discussed withthe patient. All questions were answered and informed consent was obtained. Patient identification and proposed procedure were verified. After reviewingthe risks and benefits, the patient was deemed in satisfactory condition to undergo the procedure.The anesthesia plan was to use monitored anesthesiacare (MAC). Immediately prior to administration of medications, the patient was re-assessed foradequacy to receive sedatives. The heart rate, respiratory rate, oxygen saturations, blood pressure, adequacyof pulmonary ventilation, and response to care were monitored throughout the procedure. The physical status of the patient was re-assessed after the procedure. The benefits, risks and alternatives of theprocedure and sedation were discussed and informed consentwas obtained. All questions were answered. Please referto the signed informed consent document in the medical record. The scope was passed under direct vision.The [id number] colonoscope was introduced through theanus and advanced to the cecum, identified byappendiceal orifice and ileocecal valve. The colonoscopy was performed without difficulty. The patient tolerated the procedure well. The quality of the bowel preparation was fair. Scope withdrawal time was 10 minutes. Prep was administered in a split dose. Findings: The perianal and digital rectal examinations were normal. Scattered medium-mouthed diverticula were found in the sigmoidcolon. Non-bleeding internal hemorrhoids were found during retroflexion. The hemorrhoids were small. The exam was otherwise without abnormality. Impression: - Preparation of the colon was fair. - Diverticulosis in the sigmoid colon. - Non-bleeding internal hemorrhoids. - The examination was otherwise normal. - No specimens collected. Recommendation: - Patient has a contact number available for emergencies. The signs and symptoms of potential delayed complications were discussed with thepatient. Return to normal activities tomorrow. Written discharge instructions were provided to thepatient. - High fiber diet. - Continue present medications. - Repeat colonoscopy in 3 years for surveillancedue to fair prep. Easton Campos M.D. Easton Campos M.D. 09/30/2023 2:27:16 PM . 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
--- OUTSIDE RECORDS SUMMARY | 2024-12-20 09:51 | XMS_ITS | Clinical Summary ---
Author Organization [facility] Address [facility] [place] [address] Care Team Providers Care Roll Operator Name Role Phone None, Provider MD Primary Care Provider Unavaila ble Allergies No known active allergies Medications oxyCODONE-aceta minophen (PERCOCET) 5-325 MG tabletIndicatio ns:Acute Pain < 3 Day Supply Take 1-2 tablets by mouth every 6 (six) hours as needed for Pain. Indications: Acute Pain < 3 Day Supply 12 tablet 07/03/2019 Active Social History Tobacco Use Types Packs/Day Years Used Date Smoking Tobacco: Every Day Cigarettes 1 35 Smokeless Tobacco: Never Alcohol Use Standard Drinks/Week Comments Yes 0 (1 standard drink = 0.6 oz pur e alcohol) SOCIALLY Comments No Sex and Gender Information Value Date Recorded Sex Assigned at Not on file Legal Sex Female 5:15 PM CDT Gender Identity Not on file Sexual Orientation Not on file Last Filed Vital Signs Vital Sign Reading Time Taken Comments Blood Pressure 150/87 07/03/2019 4:30 PM CDT Pulse 75 07/03/2019 1:59 PM CDT Temperature 37.2 C (98.9 F) 07/03/2019 1:59 PM CDT Respiratory Rate 19 07/03/2019 1:59 PM CDT Oxygen Saturation 93% 07/03/2019 4:00 PM CDT Inhaled Oxygen Concentration - - Weight 102.1 kg (225 lb) 07/03/2019 1:59 PM CDT Height 170.2 cm (5' 7) 07/03/2019 1:59 PM CDT Body Mass Index 35.24 07/03/2019 1:59 PM CDT Plan of Treatment Health Maintenance Due Date Last Done Comments Colorectal Cancer Screening Colonoscopy (10 Years) 1967 Annual Physical 1970 Hepatitis C 1985 DTaP, Tdap and Td Vaccines ( 1 - Tdap) 1986 Hepatitis B Vaccines (1 of 3 - 19+ 3-dose series) 1986 Pneumococcal Vaccine: 50+ Ye ars (1 of 2 - PCV) 1986 Mammogram Screening 2007 Zoster Vaccines (1 of 2) 2017 COVID-19 Vaccine (2024-2 6 season) 2024 Influenza Adult (#1) 2024 Hepatitis A Vaccines Aged Out No long er eligible based on patient's age to complete this topic Meningococcal B Vaccine Aged Out No l onger eligible based on patient's age to complete this topic Meningococcal Vaccine Aged Out No maggie janna eligible based on patient's age to complete this topic RSV Immunizations Under 20 Months Aged Out No longer eligible based on patient's age to complete this topic Care Teams Roll Operator Relationship Specialty Start Date End Date None, Provider, PCP - General 07/03/19
--- OUTSIDE RECORDS SUMMARY | 2024-12-20 09:51 | XMS_ITS | Data Portability ---
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 Lab lipid panel, serum 2024 025 [place] [facility], [address], [place], [address], 00:08:22 HbA1c (hemoglobi n A1c), blood 2024 025 In-Office Order, Internal Use Only DO Not Attach Compendium DO Not Attach Compendium, Do Not Delete/merge, [id number] 10:54:00 CMP, serum or plasma 2024 025 [facility], [address], [address], [place], [address], 00:08:23 HbA1c (hemoglobi n A1c), blood 2024 025 [facility] In-Office Order, Internal Use Only DO Not Attach Compendium DO Not Attach Compendium, Do Not Delete/merge, [id number] 5 16:02:08 lipid panel, serum 2024 025 [facility], [address] Joh[address] Emmanuel, [address], [place], [address], 5 22:06:59 CMP, serum or plasma 2024 025 [facility], 2022 Joh[address] Emmanuel, [address], [place], [address], 5 22:07:00 CMP, serum or plasma 2023 024 [facility], [address] Joh[address] Emmanuel, [address], [place], [address], 4 08:02:31 CBC w/ auto diff 2023 024 [facility], [address] Joh[address] Emmanuel, [address], [place], [address], 4 08:02:31 lipid panel, serum 2023 024 [facility], 2022 Joh[address] Emmanuel, [address], [place], [address], 4 08:02:31 HbA1c (hemoglobi n A1c), blood 2023 024 [facility], 2022 Joh[address] Emmanuel, [address], [place], [address], 4 08:31:49 TSH + free T4, serum 2023 024 [facility], [address] Joh[address] Emmanuel, [address], [place], [address], 4 08:31:48 lipid panel, serum 2023 024 [facility], [address] Joh[address] Emmanuel, [address], [place], [address], 4 20:12:11 albumin/cr eatinine, mass ratio, urine 2023 024 [facility], [address] Joh[address] Emmanuel, [address], [place], [address], 4 09:18:15 HbA1c (hemoglobi n A1c), blood 2023 024 In-Office Order, Internal Use Only DO Not Attach Compendium DO Not Attach Compendium, Do Not Delete/merge, [id number] 4 11:29:32 CBC w/ auto diff 2023 024 [facility], [address] Joh[address] Emmanuel, [address], [place], [address], 4 20:12:12 CMP, serum or plasma 2023 024 [facility], [address] Joh[address] Emmanuel, [address], [place], [address], 4 20:12:12 lipid panel, serum 2022 023 [facility], [address] Joh[address] Emmanuel, [address], [place], [address], 3 10:14:41 albumin/cr eatinine, mass ratio, urine 2022 023 [facility], [address] Joh[address] Emmanuel, [address], [place], [address], 3 10:14:41 HbA1c (hemoglobi n A1c), blood 2022 023 In-Office Order, Internal Use Only DO Not Attach Compendium DO Not Attach Compendium, Do Not Delete/merge, [id number] 3 12:21:33 CBC w/ auto diff 2022 023 [place] [facility], [address] Emmanuel, [address], [place], [address], 3 10:14:43 CMP, serum or plasma 2022 023 [place] [facility], [address], [address], [place], [address], 3 10:14:42 Referral physical therapist referral [address] PT, OT, Speech Therapy, [address] [facility] [place], [address], 5 08:52:54 Procedures colonoscop y screening (PROC) [address] [facility] - Gastroenterol [facility]gy, [address] [facility] , [address], [place], [address], 4 11:29:40 colonoscop y screening (PROC) 2022 023 [facility], [address] [facility], [place], [address], 3 12:01:11 Surgeries None recorded. Imaging MAMMO, screening, bilateral [address] ([facility]), [address] [place], [address], 5 17:36:49 XR, lumbosacra l spine, 2 or 3 view 2024 025 [facility] ([facility]), [address], [address], 5 15:44:03 LDCT, chest, for lung cancer screening [address] ([facility]), [address], [address], 5 11:09:37 MAMMO, screening, bilateral [address] ([facility]), [address] [place] [address] [place], [address], 5 08:23:15 LDCT, chest, for lung cancer screening 2024 025 [facility], [facility] [address], [place], [address], 5 11:15:31 MAMMO, screening, bilateral [address] ([facility]), [address] [place] [address] [place], [address], 4 07:51:51 LDCT, chest, for lung cancer screening [address] ([facility]), [address] [place] [address] [place], [address], 4 08:13:51 MAMMO, screening, bilateral [address] ([facility]), [address] [place] [address] [place], [address], 4 15:18:21 LDCT, chest, for lung cancer screening [address] ([facility]), [address] [place] [address] [place], [address], 4 15:18:21 MAMMO, screening, bilateral [id number] [place] [address] Imaging, [address] [facility] [address], [place], [address], 3 12:30:14 LDCT, chest, for lung cancer screening [address], 2022 Isaias Emmanuel, [address], [address], 3 12:30:14 Medication Orders vareniclin e tartrate 0.5 mg (11)-1 mg (42) tablets in a dose pack 2024 025 [facility] [address] [place] [address], [address], 5 10:54:05 venlafaxin e ER 75 mg capsule,ex tended release 24 hr 2024 025 [facility]3259, [address] [place] [address], [address], 5 10:54:06 losartan 50 mg-hydroch lorothiazi de 12.5 mg tablet 2024 025 [facility] [address] [place] [address], [address], 5 10:54:06 atorvastat in 80 mg tablet 2024 025 [facility] [address] [place] [address], [address], 5 10:54:05 amlodipine 10 mg tablet 2024 025 [facility] [address] [place] [address], [address], 5 10:54:05 Jardiance 25 mg tablet 2024 025 [facility] #3259, [address] [place] [address], [address], 5 10:54:05 Trulicity 3 mg/0.5 mL subcutaneo us pen injector 2024 025 [facility] #3259, [address] [place] [address], [address], 5 10:54:05 vareniclin e tartrate 0.5 mg (11)-1 mg (42) tablets in a dose pack 2024 025 [facility], [address] [place], [address], 5 16:25:11 Trulicity 1.5 mg/0.5 mL subcutaneo us pen injector 2024 025 [address], [address] [place], [address], 5 12:55:04 venlafaxin e ER 75 mg capsule,ex tended release 24 hr 2023 024 [facility], [address] [place] [address], [address], 4 11:34:17 Symbicort 160 mcg-4.5 mcg/actuat ion HFA aerosol inhaler [address] [facility], [address] [place], [place], [id number], 4 12:57:44 venlafaxin e ER 75 mg capsule,ex tended release 24 hr 2023 024 [facility], [address] [place] [address], [address], 4 11:29:30 Jardiance 25 mg tablet 2023 024 [facility] [address] [place] [address], [address], 4 13:22:16 Trulicity 4.5 mg/0.5 mL subcutaneo us pen injector 2023 024 [address], [address] [place], [address], 4 11:29:55 amlodipine 10 mg tablet 2023 024 [facility]7984, [address] [place], [place], [id number], 4 11:29:44 atorvastat in 40 mg tablet [address] [facility]99793, [address] [facility], [place], [place], [id number], 4 13:49:35 Jardiance 25 mg tablet [address]/[facility]acy #3259, [address] [place], [address], 3 17:08:50 Symbicort 160 mcg-4.5 mcg/actuat ion HFA aerosol inhaler 2022 023 [facility] #81507, [address] [place], [place], [id number], 3 13:46:44 venlafaxin e ER 75 mg capsule,ex tended release 24 hr 2022 023 [facility], [address] [place], [address], 4 10:08:28 Ozempic 0.25 mg or 0.5 mg (2 mg/1.5 mL) subcutaneo us pen injector 2022 024 [facility] #06433, [address] [place], [place], [id number], 4 11:22:11 amlodipine 10 mg tablet 2022 023 [facility] #49711, [address] [facility], [place], [place], [id number], 13:46:47 atorvastat in 40 mg tablet 2022 023 [facility] #61450, [address] [facility], [place], [place], [id number], 13:49:35 Patient TargetsNo targets recorded. Patient Instructions Encounter Date Encounter Id Patient Instructions Last Modified By Organization Details Last Modified Time 10/18/2022 [id number] A healthy lifestyle: care instructions Not available 10/18/2022 12:21:33 dash diet: care instructions Not available 10/18/2022 12:21:32 How To Lower Blood Pressure Not available 10/18/2022 12:21:33 02/17/2023 [id number] A healthy lifestyle: care instructions Not available 02/17/2023 11:29:26 dash diet: care instructions Not available 02/17/2023 11:29:26 How To Lower Blood Pressure Not available 02/17/2023 11:29:27 11/24/2023 [id number] Quitting Tobacco : Care Instructions Not available 11/30/2023 07:27:47 medical record request* - patient was sent here from this office and completed colon screenin 09/2023 and we need records ATHENAFAX Not available 11/30/2023 11:01:30 02/20/2024 [id number] A healthy lifestyle: care instructions Not available 02/20/2024 12:55:04 07/17/2024 [id number] A healthy lifestyle: care instructions Not available 07/17/2024 10:54:00 Reason for Referral Physical Therapist Referral for Low back pain Referring Physician: Anastasiia Elmore, [employer], Encounter Date: 07/17/2024 Results Created Date Observation Date Name Description Value Unit Range Abnormal Flag Note LastModifiedBy Organization Detail LastModifiedTime 10/19/1910/19/2022 ALBUM IN/CR EATIN INE RATIO ,URIN E creatinine, urine 56.3 mg/dL notest ab. Not Available [facility] ([facility]) [address] [facility], [place], [address], 10/19/2022 10:14:41 10/19/19 23 10/19/2022 ALBUM IN/CR EATIN INE RATIO ,URIN E albumin, urine 5.2 ug/mL notest ab. Not Available [facility] ([facility]) [address] [facility], [place], [address], 10/19/2022 10:14:41 10/19/19 23 10/19/2022 ALBUM IN/CR EATIN INE RATIO ,URIN E alb/creat ratio 9 mg/g_ creat 0-29 Bibi l: 0 - 29 Moder ately incre ased: 30 - 300 Sever richard incre ased: >300 Not Available [facility] ([facility]) [address] [facility], [place], [address], 10/19/2022 10:14:41 10/19/1910/19/2022 LIPID PANEL cholesterol, total 179 mg/dL 100-19 9 Not Available [facility] ([facility]) [address] [facility], [place], [address], 10/19/2022 10:14:41 10/19/19 23 10/19/2022 LIPID PANEL triglyceride s 244 mg/dL 0-149 above high normal Not Available [facility] ([facility]) [address] [place], [address], 10/19/2022 10:14:41 10/19/19 23 10/19/2022 LIPID PANEL HDL cholesterol 52 mg/dL >39 Not Available [facility] ([facility]) [address] [facility], [place], [address], 10/19/2022 10:14:41 10/19/19 23 10/19/2022 LIPID PANEL VLDL cholesterol oanh 40 mg/dL 5-40 Not Available [facility] ([facility]) [address] [facility], [place], [address], 10/19/2022 10:14:41 10/19/19 23 10/19/2022 LIPID PANEL LDL chol calc ([facility]) 87 mg/dL 0-99 Not Available [facility] ([facility]) [address] [place], [address], 10/19/2022 10:14:41 10/19/19 23 10/19/2022 COMP. METAB OLIC PANEL (14) glucose 112 mg/dL 70-99 above high normal Not Available [facility] ([facility]) [address] [facility], [place], [address], 10/19/2022 10:14:42 10/19/19 23 10/19/2022 COMP. METAB OLIC PANEL (14) BUN 24 mg/dL 6-24 Not Available [facility] ([facility]) [address] [place], [address], 10/19/2022 10:14:42 10/19/19 23 10/19/2022 COMP. METAB OLIC PANEL (14) creatinine 0.97 mg/dL 0.57-1 .00 Not Available [facility] ([facility]) [address] [place], [address], 10/19/2022 10:14:42 10/19/19 23 10/19/2022 COMP. METAB OLIC PANEL (14) eGFR 69 mL/mi n/1.7 3 >59 Not Available [facility] ([facility]) [address] [place], [address], 10/19/2022 10:14:42 10/19/19 23 10/19/2022 COMP. METAB OLIC PANEL (14) BUN/creatini ne ratio 25 9-23 above high normal Not Available [facility] ([facility]) [address] [place], [address], 10/19/2022 10:14:42 10/19/19 23 10/19/2022 COMP. METAB OLIC PANEL (14) sodium 139 mmol/ L 134-14 4 Not Available [facility] ([facility]) [address] [place], [address], 10/19/2022 10:14:42 10/19/19 23 10/19/2022 COMP. METAB OLIC PANEL (14) potassium 4.4 mmol/ L 3.5-5. 2 Not Available [facility] ([facility]) [address] [place], [address], 10/19/2022 10:14:42 10/19/19 23 10/19/2022 COMP. METAB OLIC PANEL (14) chloride 103 mmol/ L 96-106 Not Available [facility] ([facility]) [address] [facility] [place], [address], 10/19/2022 10:14:42 10/19/19 23 10/19/2022 COMP. METAB OLIC PANEL (14) carbon dioxide, total 22 mmol/ L 20-29 Not Available [facility] ([facility]) [address] [facility] [place], [address], 10/19/2022 10:14:42 10/19/19 23 10/19/2022 COMP. METAB OLIC PANEL (14) calcium 9.6 mg/dL 8.7-10 .2 Not Available [facility] ([facility]) [address] [facility] [place], [address], 10/19/2022 10:14:42 10/19/19 23 10/19/2022 COMP. METAB OLIC PANEL (14) protein, total 7.1 g/dL 6.0-8. 5 Not Available [facility] ([facility]) [address] [facility] [place], [address], 10/19/2022 10:14:42 10/19/19 23 10/19/2022 COMP. METAB OLIC PANEL (14) albumin 4.7 g/dL 3.8-4. 9 Not Available [facility] ([facility]) [address] [facility], [place], [address], 10/19/2022 10:14:42 10/19/19 23 10/19/2022 COMP. METAB OLIC PANEL (14) globulin, total 2.4 g/dL 1.5-4. 5 Not Available [facility] ([facility]) [address] [facility], [place], [address], 10/19/2022 10:14:42 10/19/19 23 10/19/2022 COMP. METAB OLIC PANEL (14) A/G ratio 2.0 1.2-2. 2 Not Available [facility] ([facility]) [address] [facility], [place], [address], 10/19/2022 10:14:42 10/19/19 23 10/19/2022 COMP. METAB OLIC PANEL (14) bilirubin, total 0.4 mg/dL 0.0-1. 2 Not Available [facility] ([facility]) [address] [facility], [place], [address], 10/19/2022 10:14:42 10/19/19 23 10/19/2022 COMP. METAB OLIC PANEL (14) alkaline phosphatase 69 IU/L 44-121 Not Available [facility] ([facility]) [address] [facility], [place], [address], 10/19/2022 10:14:42 10/19/19 23 10/19/2022 COMP. METAB OLIC PANEL (14) AST (SGOT) 20 IU/L 0-40 Not Available [facility] ([facility]) [address] [place], [address], 10/19/2022 10:14:42 0910/19/2022 COMP. METAB OLIC PANEL (14) ALT (SGPT) 28 IU/L 0-32 Not Available [facility] ([facility]) [address] [facility], [place], [address], 10/19/2022 10:14:42 10/19/19 23 10/19/2022 CBC WITH DIFFE RENTI AL/PL ATELE T WBC 11.9 x10e3 /uL 3.4-10 .8 above high normal Not Available [facility] ([facility]) [address] [place], [address], 10/19/2022 10:14:43 10/19/1910/19/2022 CBC WITH DIFFE RENTI AL/PL ATELE T RBC 5.39 x10e6 /uL 3.77-5 .28 above high normal Not Available [facility] ([facility]) [address] [place], [address], 10/19/2022 10:14:43 10/19/19 23 10/19/2022 CBC WITH DIFFE RENTI AL/PL ATELE T hemoglobin 16.5 g/dL 11.1-1 5.9 above high normal Not Available [facility] ([facility]) [address] [place], [address], 10/19/2022 10:14:43 10/19/19 23 10/19/2022 CBC WITH DIFFE RENTI AL/PL ATELE T hematocrit 48.0 % 34.0-4 6.6 above high normal Not Available [facility] ([facility]) [address] [place], [address], 10/19/2022 10:14:43 10/19/19 23 10/19/2022 CBC WITH DIFFE RENTI AL/PL ATELE T MCV 89 fL 79-97 Not Available [facility] ([facility]) [address] [place], [address], 10/19/2022 10:14:43 10/19/19 23 10/19/2022 CBC WITH DIFFE RENTI AL/PL ATELE T MCH 30.6 pg 26.6-3 3.0 Not Available [facility] ([facility]) [address] [facility], [place], [address], 10/19/2022 10:14:43 10/19/19 23 10/19/2022 CBC WITH DIFFE RENTI AL/PL ATELE T MCHC 34.4 g/dL 31.5-3 5.7 Not Available [facility] ([facility]) [address] [facility], [place], [address], 10/19/2022 10:14:43 10/19/19 23 10/19/2022 CBC WITH DIFFE RENTI AL/PL ATELE T RDW 13.1 % 11.7-1 5.4 Not Available [facility] ([facility]) [address] [facility], [place], [address], 10/19/2022 10:14:43 10/19/19 23 10/19/2022 CBC WITH DIFFE RENTI AL/PL ATELE T platelets 242 x10e3 /uL 150-45 0 Not Available [facility] ([facility]) [address] [facility], [place], [address], 10/19/2022 10:14:43 10/19/19 23 10/19/2022 CBC WITH DIFFE RENTI AL/PL ATELE T neutrophils 45 % notest ab. Not Available [facility] ([facility]) [address] [place], [address], 10/19/2022 10:14:43 10/19/19 23 10/19/2022 CBC WITH DIFFE RENTI AL/PL ATELE T lymphs 47 % notest ab. Not Available [facility] ([facility]) [address] [place], [address], 10/19/2022 10:14:43 09/11/10/19/2022 CBC WITH DIFFE RENTI AL/PL ATELE T monocytes 6 % notest ab. Not Available [facility] ([facility]) [address] [facility], [place], [address], 10/19/2022 10:14:43 10/19/19 23 10/19/2022 CBC WITH DIFFE RENTI AL/PL ATELE T eos 1 % notest ab. Not Available [facility] ([facility]) [address] [facility], [place], [address], 10/19/2022 10:14:43 10/19/19 23 10/19/2022 CBC WITH DIFFE RENTI AL/PL ATELE T basos 1 % notest ab. Not Available [facility] ([facility]) [address] [facility], [place], [address], 10/19/2022 10:14:43 10/19/19 23 10/19/2022 CBC WITH DIFFE RENTI AL/PL ATELE T neutrophils (absolute) 5.3 x10e3 /uL 1.4-7. 0 Not Available [facility] ([facility]) [address] [place], [address], 10/19/2022 10:14:43 10/19/19 23 10/19/2022 CBC WITH DIFFE RENTI AL/PL ATELE T lymphs (absolute) 5.7 x10e3 /uL 0.7-3. 1 above high normal Not Available [facility] ([facility]) [address] [place], [address], 10/19/2022 10:14:43 10/19/19 23 10/19/2022 CBC WITH DIFFE RENTI AL/PL ATELE T monocytes(ab solute) 0.7 x10e3 /uL 0.1-0. 9 Not Available [facility] ([facility]) [address] [facility], [place], [address], 10/19/2022 10:14:43 10/19/19 23 10/19/2022 CBC WITH DIFFE RENTI AL/PL ATELE T eos (absolute) 0.1 x10e3 /uL 0.0-0. 4 Not Available [facility] ([facility]) [address] [place], [address], 10/19/2022 10:14:43 10/19/19 23 10/19/2022 CBC WITH DIFFE RENTI AL/PL ATELE T baso (absolute) 0.1 x10e3 /uL 0.0-0. 2 Not Available [facility] ([facility]) [address] [place], [address], 10/19/2022 10:14:43 10/19/19 23 10/19/2022 CBC WITH DIFFE RENTI AL/PL ATELE T immature granulocytes 0 % notest ab. Not Available [facility] ([facility]) [address] [facility], [place], [address], 10/19/2022 10:14:43 10/19/19 23 10/19/2022 CBC WITH DIFFE RENTI AL/PL ATELE T immature grans (abs) 0.0 x10e3 /uL 0.0-0. 1 Not Available [facility] ([facility]) [address] [facility], [place], [address], 10/19/2022 10:14:43 10/19/19 23 10/19/2022 HEMOG LOBIN A1C hemoglobin A1C 7.0 % 4.8-5. 6 above high normal Predi abete s: 5.7 - 6.4 Diabe cuco: >6.4 Glyce lucretia contr ol for adult s with diabe cuco: <7.0 Not Available [facility] ([facility]) [address] [place], [address], 10/19/2022 10:14:43 10/19/19 23 10/18/2022 HbA1c (hemo globi n A1c), blood HbA1c 6.9% Not Available In-Office Order Internal Use Only DO Not Attach Compendium DO Not Attach Compendium, Do Not Delete/merge, [id number] 10/18/2022 12:03:43 02/17/19 24 02/17/2023 LIPID PANEL cholesterol, total 269 mg/dL 100-19 9 above high normal Not Available [facility] [address] [place] [address], [address], 02/17/2023 20:12:11 02/17/19 24 02/17/2023 LIPID PANEL triglyceride s 344 mg/dL 0-149 above high normal Not Available [facility] [address] [place] [address], [address], 02/17/2023 20:12:11 02/17/19 24 02/17/2023 LIPID PANEL HDL cholesterol 48 mg/dL 40-999 Not Available [facility] Department [address] [place], [address], 02/17/2023 20:12:11 02/17/19 24 02/17/2023 LIPID PANEL VLDL cholesterol oanh 69 mg/dL 5-40 above high normal Not Available [facility] [address] [place], [address], 02/17/2023 20:12:11 02/17/19 24 02/17/2023 LIPID PANEL LDL chol calc (nih) 197 mg/dL 0-99 above high normal Not Available [facility] [address] [place], [address], 02/17/2023 20:12:11 02/17/19 24 02/17/2023 COMP. METAB OLIC PANEL (14) glucose 116 mg/dL 70-99 above high normal Not Available [facility] [address] [place], [address], 02/17/2023 20:12:12 02/17/19 24 02/17/2023 COMP. METAB OLIC PANEL (14) BUN 26 mg/dL 6-24 above high normal Not Available [facility] [address] [place], [address], 02/17/2023 20:12:12 02/17/19 24 02/17/2023 COMP. METAB OLIC PANEL (14) creatinine 0.98 mg/dL 0.76-1 .27 Not Available [facility] [address] [place], [address], 02/17/2023 20:12:12 02/17/19 24 02/17/2023 COMP. METAB OLIC PANEL (14) eGFR 68 >=60 Units for eGFR value s are mL/mi n/1.7 3 The eGFR Calcu latio n has not been valid ated for patie nts under the age of 18. If test resul ts are displ ayed for a patie nt under the age of 18, disre verna that value . Not Available [facility] [address] [place] [address], [address], 02/17/2023 20:12:12 02/17/19 24 02/17/2023 COMP. METAB OLIC PANEL (14) BUN/creatini ne ratio 27 9-23 above high normal Not Available [facility] [address] [place], [address], 02/17/2023 20:12:12 02/17/19 24 02/17/2023 COMP. METAB OLIC PANEL (14) sodium 138 mmol/ L 134-14 4 Not Available [facility] [address] [place], [address], 02/17/2023 20:12:12 02/17/19 24 02/17/2023 COMP. METAB OLIC PANEL (14) potassium 4.2 mmol/ L 3.5-5. 2 Not Available [facility] [address] [place] [address], [address], 02/17/2023 20:12:12 02/17/19 24 02/17/2023 COMP. METAB OLIC PANEL (14) chloride 98 mmol/ L 96-106 Not Available [facility] [address] [place] [address], [address], 02/17/2023 20:12:12 02/17/19 24 02/17/2023 COMP. METAB OLIC PANEL (14) carbon dioxide, total 24 mmol/ L 20 Not Available [facility] [address] [place], [address], 02/17/2023 20:12:12 02/17/19 24 02/17/2023 COMP. METAB OLIC PANEL (14) calcium 10.0 mg/dL 8.7-10 .2 Not Available [facility] [address] [place], [address], 02/17/2023 20:12:12 02/17/19 24 02/17/2023 COMP. METAB OLIC PANEL (14) protein, total 7.4 g/dL 6.0-8. 5 Not Available [facility] [address] [place], [address], 02/17/2023 20:12:12 02/17/19 24 02/17/2023 COMP. METAB OLIC PANEL (14) albumin 4.7 g/dL 3.8-4. 9 Not Available [facility] [address] [place], [address], 02/17/2023 20:12:12 02/17/19 24 02/17/2023 COMP. METAB OLIC PANEL (14) globulin, total 2.7 g/dL 1.5-4. 5 Not Available [facility] [address] [place], [address], 02/17/2023 20:12:12 02/17/19 24 02/17/2023 COMP. METAB OLIC PANEL (14) A/G ratio 2.0 1.2-2. 2 Not Available [facility] [address] [place], [address], 02/17/2023 20:12:12 02/17/19 24 02/17/2023 COMP. METAB OLIC PANEL (14) bilirubin, total 0.5 mg/dL 0.0-1. 2 Not Available [facility] [address] [place] [address], [address], 02/17/2023 20:12:12 02/17/19 24 02/17/2023 COMP. METAB OLIC PANEL (14) alkaline phosphatase 76 IU/L 44-121 Not Available [facility] Department [address] [place] [address], [address], 02/17/2023 20:12:12 02/17/19 24 02/17/2023 COMP. METAB OLIC PANEL (14) AST (SGOT) 16 IU/L 0-40 Not Available [facility] Department [address] [place] [address], [address], 02/17/2023 20:12:12 02/17/19 24 02/17/2023 COMP. METAB OLIC PANEL (14) ALT (SGPT) 23 IU/L 0-32 Not Available [facility] Department [address] [place] [address], [address], 02/17/2023 20:12:12 02/17/19 24 02/17/2023 CBC WITH DIFFE RENTI AL/PL ATELE T WBC 11.0 x10e3 /uL 3.4-10 .8 above high normal Not Available [facility] [address] [place], [address], 02/17/2023 20:12:12 02/17/19 24 02/17/2023 CBC WITH DIFFE RENTI AL/PL ATELE T RBC 5.85 x10e6 /uL 3.77-5 .28 above high normal Not Available [facility] [address] [place], [address], 02/17/2023 20:12:12 02/17/19 24 02/17/2023 CBC WITH DIFFE RENTI AL/PL ATELE T hemoglobin 17.3 g/dL 11.1-1 5.9 above high normal Not Available [facility] [address] [place], [address], 02/17/2023 20:12:12 02/17/19 24 02/17/2023 CBC WITH DIFFE RENTI AL/PL ATELE T hematocrit 53.2 % 34.0-4 6.6 above high normal Not Available [facility] [address] [place], [address], 02/17/2023 20:12:12 02/17/19 24 02/17/2023 CBC WITH DIFFE RENTI AL/PL ATELE T MCV 91 fL 79-97 Not Available [facility] [address] [place], [address], 02/17/2023 20:12:12 02/17/19 24 02/17/2023 CBC WITH DIFFE RENTI AL/PL ATELE T MCH 29.6 pg 26.6-3 3.0 Not Available [facility] [address] [place], [address], 02/17/2023 20:12:12 02/17/19 24 02/17/2023 CBC WITH DIFFE RENTI AL/PL ATELE T MCHC 32.5 g/dL 31.5-3 5.7 Not Available [facility] [address] [place], [address], 02/17/2023 20:12:12 02/17/19 24 02/17/2023 CBC WITH DIFFE RENTI AL/PL ATELE T RDW 12.8 % 11.5-1 4.5 Not Available [facility] [address] [place], [address], 02/17/2023 20:12:12 02/17/19 24 02/17/2023 CBC WITH DIFFE RENTI AL/PL ATELE T platelets 315 x10e3 /uL 150-45 0 Not Available [facility] [address] [place], [address], 02/17/2023 20:12:12 02/17/19 24 02/17/2023 CBC WITH DIFFE RENTI AL/PL ATELE T neutrophils 49 % notest b. Not Available [facility] [address], [place], [address], 02/17/2023 20:12:12 02/17/19 24 02/17/2023 CBC WITH DIFFE RENTI AL/PL ATELE T lymphs 42 % notest b. Not Available [facility] [address] [place], [address], 02/17/2023 20:12:12 02/17/19 24 02/17/2023 CBC WITH DIFFE RENTI AL/PL ATELE T monocytes 6 % notest b. Not Available [facility] [address] [place], [address], 02/17/2023 20:12:12 02/17/19 24 02/17/2023 CBC WITH DIFFE RENTI AL/PL ATELE T eos 1 % notest b. Not Available [facility] [address] [place], [address], 02/17/2023 20:12:12 02/17/19 24 02/17/2023 CBC WITH DIFFE RENTI AL/PL ATELE T basos 1 % notest b. Not Available [facility] [address] [place], [address], 02/17/2023 20:12:12 02/17/19 24 02/17/2023 CBC WITH DIFFE RENTI AL/PL ATELE T neutrophils (absolute) 5.4 x10e3 /uL 1.4-7. 0 Not Available [facility] [address] [place], [address], 02/17/2023 20:12:12 02/17/19 24 02/17/2023 CBC WITH DIFFE RENTI AL/PL ATELE T lymphs (absolute) 4.6 x10e3 /uL 0.7-3. 1 above high normal Not Available [facility] [address] [place], [address], 02/17/2023 20:12:12 02/17/19 24 02/17/2023 CBC WITH DIFFE RENTI AL/PL ATELE T monocytes(ab solute) 0.7 x10e3 /uL 0.1-0. 9 Not Available [facility] [address] [place], [address], 02/17/2023 20:12:12 02/17/19 24 02/17/2023 CBC WITH DIFFE RENTI AL/PL ATELE T eos (absolute) 0.1 x10e3 /uL 0.0-0. 4 Not Available [facility] [address] [place], [address], 02/17/2023 20:12:12 02/17/19 24 02/17/2023 CBC WITH DIFFE RENTI AL/PL ATELE T baso (absolute) 0.1 x10e3 /uL 0.0-0. 2 Not Available [facility] [address] [place], [address], 02/17/2023 20:12:12 02/17/19 24 02/17/2023 CBC WITH DIFFE RENTI AL/PL ATELE T immature granulocytes 0.5 % notest b. Not Available [facility] [address] [place], [address], 02/17/2023 20:12:12 02/17/19 24 02/17/2023 CBC WITH DIFFE RENTI AL/PL ATELE T immature grans (abs) 0.1 x10e3 /uL 0.0-0. 1 Not Available [facility] [address] [place], [address], 02/17/2023 20:12:12 02/17/19 24 02/17/2023 CBC WITH DIFFE RENTI AL/PL ATELE T NRBC 0 % 0-[address] [facility] [address], [place], [address], 02/17/2023 20:12:12 02/17/19 24 02/18/2023 ALBUM IN/CR EATIN INE RATIO ,URIN E creatinine, urine 110.5 mg/dL notest ab. Not Available [facility] ([facility]) [address] [place], [address], 02/18/2023 09:18:15 02/17/19 24 02/18/2023 ALBUM IN/CR EATIN INE RATIO ,URIN E albumin, urine 9.5 ug/mL notest ab. Not Available [facility] ([facility]) [address] [place], [address], 02/18/2023 09:18:15 02/17/19 24 02/18/2023 ALBUM IN/CR EATIN INE RATIO ,URIN E alb/creat ratio 9 mg/g_ creat 0-29 Bibi l: 0 - 29 Moder ately incre ased: 30 - 300 Sever richard incre ased: >300 Not Available [facility] ([facility]) [address] [facility], [place], [address], 02/18/2023 09:18:15 02/17/19 24 02/17/2023 HbA1c (hemo globi n A1c), blood HbA1c 8.0 Not Available In-Office Order Internal Use Only DO Not Attach Compendium DO Not Attach Compendium, Do Not Delete/merge, [id number] 02/17/2023 11:11:43 11/24/1911/25/2023 TSH+F REE T4 TSH 1.490 uIU/m L 0.450- 4.500 Not Available [facility] ([facility]) [address] [place], [address], 11/25/2023 08:31:48 11/24/19 24 11/25/2023 TSH+F REE T4 T4,free(dire ct) 1.27 NG/dL 0.82-1 .77 Not Available [facility] ([facility]) [address] [place], [address], 11/25/2023 08:31:48 11/24/19 24 11/25/2023 HEMOG LOBIN A1C hemoglobin A1C 10.0 % 4.8-5. 6 above high normal Predi abete s: 5.7 - 6.4 Diabe cuco: >6.4 Glyce lucretia contr ol for adult s with diabe cuco: <7.0 Not Available [facility] ([facility]) [address] [place], [address], 11/25/2023 08:31:49 01/20/20 24 01/21/2024 LIPID PANEL cholesterol, total 195 mg/dL 100-19 9 Not Available [facility] ([facility]) [address] [place], [address], 01/21/2024 08:26:52 01/20/20 24 01/21/2024 LIPID PANEL triglyceride s 197 mg/dL 0-149 above high normal Not Available [facility] ([facility]) [address] [place], [address], 01/21/2024 08:26:52 01/20/20 24 01/21/2024 LIPID PANEL HDL cholesterol 47 mg/dL >39 Not Available [facility] ([facility]) [address] [place], [address], 01/21/2024 08:26:52 01/20/20 24 01/21/2024 LIPID PANEL VLDL cholesterol oanh 34 mg/dL 5-40 Not Available [facility] ([facility]) [address] [place], [address], 01/21/2024 08:26:52 01/20/20 24 01/21/2024 LIPID PANEL LDL chol calc ([facility]) 114 mg/dL 0-99 above high normal Not Available [facility] ([facility]) [address] [facility] [place], [address], 01/21/2024 08:26:52 01/20/20 24 01/21/2024 COMP. METAB OLIC PANEL (14) glucose 133 mg/dL 70-99 above high normal Not Available [facility] ([facility]) [address] [facility] [place], [address], 01/21/2024 08:26:53 01/20/20 24 01/21/2024 COMP. METAB OLIC PANEL (14) BUN 21 mg/dL 6-24 Not Available [facility] ([facility]) [address] [facility] [place] [place], [address], 01/21/2024 08:26:53 01/20/20 24 01/21/2024 COMP. METAB OLIC PANEL (14) creatinine 1.02 mg/dL 0.57-1 .00 above high normal Not Available [facility] ([facility]) [address] [facility] [place] [place], [address], 01/21/2024 08:26:53 01/20/20 24 01/21/2024 COMP. METAB OLIC PANEL (14) eGFR 65 mL/mi n/1.7 3 >59 Not Available [facility] ([facility]) [address] [facility] [place] [place], [address], 01/21/2024 08:26:53 01/20/20 24 01/21/2024 COMP. METAB OLIC PANEL (14) BUN/creatini ne ratio 21 9-23 Not Available [facility] ([facility]) [address] [facility] [place] [place], [address], 01/21/2024 08:26:53 01/20/20 24 01/21/2024 COMP. METAB OLIC PANEL (14) sodium 139 mmol/ L 134-14 4 Not Available [facility] ([facility]) [address] [facility] [place] [place], [address], 01/21/2024 08:26:53 01/20/20 24 01/21/2024 COMP. METAB OLIC PANEL (14) potassium 4.2 mmol/ L 3.5-5. 2 Not Available [facility] ([facility]) [address] [facility], [place], [address], 01/21/2024 08:26:53 01/20/20 24 01/21/2024 COMP. METAB OLIC PANEL (14) chloride 102 mmol/ L 96-106 Not Available [facility] ([facility]) [address] [facility], [place], [address], 01/21/2024 08:26:53 01/20/20 24 01/21/2024 COMP. METAB OLIC PANEL (14) carbon dioxide, total 23 mmol/ L 20-29 Not Available [facility] ([facility]) [address] [facility] [place] [place], [address], 01/21/2024 08:26:53 01/20/20 24 01/21/2024 COMP. METAB OLIC PANEL (14) calcium 9.4 mg/dL 8.7-10 .2 Not Available [facility] ([facility]) [address] [facility] [place] [place], [address], 01/21/2024 08:26:53 01/20/20 24 01/21/2024 COMP. METAB OLIC PANEL (14) protein, total 7.1 g/dL 6.0-8. 5 Not Available [facility] ([facility]) [address] [facility] [place], [address], 01/21/2024 08:26:53 01/20/20 24 01/21/2024 COMP. METAB OLIC PANEL (14) albumin 4.8 g/dL 3.8-4. 9 Not Available [facility] ([facility]) [address] [facility] [place], [address], 01/21/2024 08:26:53 01/20/20 24 01/21/2024 COMP. METAB OLIC PANEL (14) globulin, total 2.3 g/dL 1.5-4. 5 Not Available [facility] ([facility]) [address] [facility] [place], [address], 01/21/2024 08:26:53 01/20/20 24 01/21/2024 COMP. METAB OLIC PANEL (14) bilirubin, total 0.3 mg/dL 0.0-1. 2 Not Available [facility] ([facility]) [address] [facility], [place], [address], 01/21/2024 08:26:53 01/20/20 24 01/21/2024 COMP. METAB OLIC PANEL (14) alkaline phosphatase 83 IU/L 44-121 Not Available [facility] ([facility]) [address] [facility], [place], [address], 01/21/2024 08:26:53 01/20/20 24 01/21/2024 COMP. METAB OLIC PANEL (14) AST (SGOT) 17 IU/L 0-40 Not Available [facility] ([facility]) [address] [facility], [place], [address], 01/21/2024 08:26:53 01/20/20 24 01/21/2024 COMP. METAB OLIC PANEL (14) ALT (SGPT) 21 IU/L 0-32 Not Available [facility] ([facility]) [address] [place], [address], 01/21/2024 08:26:53 01/20/20 24 01/21/2024 CBC WITH DIFFE RENTI AL/PL ATELE T WBC 11.3 x10e3 /uL 3.4-10 .8 above high normal Not Available [facility] ([facility]) [address] [facility], [place], [address], 01/21/2024 08:26:55 01/20/20 24 01/21/2024 CBC WITH DIFFE RENTI AL/PL ATELE T RBC 5.62 x10e6 /uL 3.77-5 .28 above high normal Not Available [facility] ([facility]) [address] [facility], [place], [address], 01/21/2024 08:26:55 01/20/20 24 01/21/2024 CBC WITH DIFFE RENTI AL/PL ATELE T hemoglobin 17.2 g/dL 11.1-1 5.9 above high normal Not Available [facility] ([facility]) [address] [place], [address], 01/21/2024 08:26:55 01/20/2001/21/2024 CBC WITH DIFFE RENTI AL/PL ATELE T hematocrit 51.0 % 34.0-4 6.6 above high normal Not Available [facility] ([facility]) [address] [place], [address], 01/21/2024 08:26:55 01/20/20 24 01/21/2024 CBC WITH DIFFE RENTI AL/PL ATELE T MCV 91 fL 79-97 Not Available [facility] ([facility]) [address] [place], [address], 01/21/2024 08:26:55 01/20/20 24 01/21/2024 CBC WITH DIFFE RENTI AL/PL ATELE T MCH 30.6 pg 26.6-3 3.0 Not Available [facility] ([facility]) [address] [place], [address], 01/21/2024 08:26:55 01/20/20 24 01/21/2024 CBC WITH DIFFE RENTI AL/PL ATELE T MCHC 33.7 g/dL 31.5-3 5.7 Not Available [facility] ([facility]) [address] [place], [address], 01/21/2024 08:26:55 01/20/20 24 01/21/2024 CBC WITH DIFFE RENTI AL/PL ATELE T RDW 13.0 % 11.7-1 5.4 Not Available [facility] ([facility]) [address] [facility], [place], [address], 01/21/2024 08:26:55 01/20/20 24 01/21/2024 CBC WITH DIFFE RENTI AL/PL ATELE T platelets 302 x10e3 /uL 150-45 0 Not Available [facility] ([facility]) [address] [facility], [place], [address], 01/21/2024 08:26:55 01/20/20 24 01/21/2024 CBC WITH DIFFE RENTI AL/PL ATELE T neutrophils 50 % notest ab. Not Available [facility] ([facility]) [address] [facility], [place], [address], 01/21/2024 08:26:55 01/20/20 24 01/21/2024 CBC WITH DIFFE RENTI AL/PL ATELE T lymphs 40 % notest ab. Not Available [facility] ([facility]) [address] [facility], [place], [address], 01/21/2024 08:26:55 01/20/20 24 01/21/2024 CBC WITH DIFFE RENTI AL/PL ATELE T monocytes 7 % notest ab. Not Available [facility] ([facility]) [address] [facility], [place], [address], 01/21/2024 08:26:55 01/20/20 24 01/21/2024 CBC WITH DIFFE RENTI AL/PL ATELE T eos 1 % notest ab. Not Available [facility] ([facility]) [address] [facility], [place], [address], 01/21/2024 08:26:55 01/20/20 24 01/21/2024 CBC WITH DIFFE RENTI AL/PL ATELE T basos 1 % notest ab. Not Available [facility] ([facility]) [address] [facility], [place], [address], 01/21/2024 08:26:55 01/20/20 24 01/21/2024 CBC WITH DIFFE RENTI AL/PL ATELE T neutrophils (absolute) 5.7 x10e3 /uL 1.4-7. 0 Not Available [facility] ([facility]) [address] [facility], [place], [address], 01/21/2024 08:26:55 01/20/20 24 01/21/2024 CBC WITH DIFFE RENTI AL/PL ATELE T lymphs (absolute) 4.5 x10e3 /uL 0.7-3. 1 above high normal Not Available [facility] ([facility]) [address] [facility], [place], [address], 01/21/2024 08:26:55 01/20/20 24 01/21/2024 CBC WITH DIFFE RENTI AL/PL ATELE T monocytes(ab solute) 0.8 x10e3 /uL 0.1-0. 9 Not Available [facility] ([facility]) [address] [facility], [place], [address], 01/21/2024 08:26:55 01/20/20 24 01/21/2024 CBC WITH DIFFE RENTI AL/PL ATELE T eos (absolute) 0.1 x10e3 /uL 0.0-0. 4 Not Available [facility] ([facility]) [address] [place], [address], 01/21/2024 08:26:55 01/20/20 24 01/21/2024 CBC WITH DIFFE RENTI AL/PL ATELE T baso (absolute) 0.1 x10e3 /uL 0.0-0. 2 Not Available [facility] ([facility]) [address] [place], [address], 01/21/2024 08:26:55 01/20/20 24 01/21/2024 CBC WITH DIFFE RENTI AL/PL ATELE T immature granulocytes 1 % notest ab. Not Available [facility] ([facility]) [address] [facility], [place], [address], 01/21/2024 08:26:55 01/20/20 24 01/21/2024 CBC WITH DIFFE RENTI AL/PL ATELE T immature grans (abs) 0.1 x10e3 /uL 0.0-0. 1 Not Available [facility] ([facility]) [address] [facility], [place], [address], 01/21/2024 08:26:55 02/19/19 25 02/20/2024 LIPID PANEL cholesterol, total 183 mg/dL 100-19 9 Not Available [facility] [address] [place], [address], 02/20/2024 22:06:59 02/19/19 25 02/20/2024 LIPID PANEL triglyceride s 199 mg/dL 0-149 above high normal Not Available [facility] [address] [place], [address], 02/20/2024 22:06:59 02/19/19 25 02/20/2024 LIPID PANEL HDL cholesterol 51 mg/dL 40-999 Not Available [facility] [address] [place], [address], 02/20/2024 22:06:59 02/19/19 25 02/20/2024 LIPID PANEL VLDL cholesterol oanh 40 mg/dL 5-40 Not Available [facility] Department [address] [place], [address], 02/20/2024 22:06:59 02/19/19 25 02/20/2024 LIPID PANEL LDL chol calc ([facility]) 122 mg/dL 0-99 above high normal Not Available [facility] [address] [place], [address], 02/20/2024 22:06:59 02/19/19 25 02/20/2024 COMP. METAB OLIC PANEL (14) glucose 131 mg/dL 70-99 above high normal Not Available [facility] [address] [place] [address], [address], 02/20/2024 22:07:00 02/19/19 25 02/20/2024 COMP. METAB OLIC PANEL (14) BUN 19 mg/dL 6-24 Not Available [facility] [address] [place], [address], 02/20/2024 22:07:00 02/19/19 25 02/20/2024 COMP. METAB OLIC PANEL (14) creatinine 0.96 mg/dL 0.76-1 .27 Not Available [facility] Department [address] [place] [address], [address], 02/20/2024 22:07:00 02/19/19 25 02/20/2024 COMP. METAB OLIC PANEL (14) eGFR 69 >=60 Units for eGFR value s are mL/mi n/1.7 3 The eGFR Calcu latio n has not been valid ated for patie nts under the age of 18. If test resul ts are displ ayed for a patie nt under the age of 18, disre verna that value . Not Available [facility] [address] [place] [address], [address], 02/20/2024 22:07:00 02/19/19 25 02/20/2024 COMP. METAB OLIC PANEL (14) BUN/creatini ne ratio 20 9-23 Not Available [facility] Department [address] [place] [address], [address], 02/20/2024 22:07:00 02/19/19 25 02/20/2024 COMP. METAB OLIC PANEL (14) sodium 140 mmol/ L 134-14 4 Not Available [facility] [address] [place] [address], [address], 02/20/2024 22:07:00 02/19/19 25 02/20/2024 COMP. METAB OLIC PANEL (14) potassium 4.3 mmol/ L 3.5-5. 2 Not Available [facility] [address] [place], [address], 02/20/2024 22:07:00 02/19/19 25 02/20/2024 COMP. METAB OLIC PANEL (14) chloride 102 mmol/ L 96-106 Not Available [facility] [address] [place] [address], [address], 02/20/2024 22:07:00 02/19/19 25 02/20/2024 COMP. METAB OLIC PANEL (14) carbon dioxide, total 27 mmol/ L 20-29 Not Available [facility] [address] [place] [address], [address], 02/20/2024 22:07:00 02/19/19 25 02/20/2024 COMP. METAB OLIC PANEL (14) calcium 9.9 mg/dL 8.7-10 .2 Not Available [facility] [address] [place], [address], 02/20/2024 22:07:00 02/19/19 25 02/20/2024 COMP. METAB OLIC PANEL (14) protein, total 7.2 g/dL 6.0-8. 5 Not Available [facility] [address] [place], [address], 02/20/2024 22:07:00 02/19/19 25 02/20/2024 COMP. METAB OLIC PANEL (14) albumin 4.6 g/dL 3.8-4. 9 Not Available [facility] [address] [place] [address], [address], 02/20/2024 22:07:00 02/19/19 25 02/20/2024 COMP. METAB OLIC PANEL (14) globulin, total 2.6 g/dL 1.5-4. 5 Not Available [facility] [address] [place], [address], 02/20/2024 22:07:00 02/19/19 25 02/20/2024 COMP. METAB OLIC PANEL (14) A/G ratio 2.0 1.2-2. 2 Not Available [facility] [address] [place], [address], 02/20/2024 22:07:00 02/19/19 25 02/20/2024 COMP. METAB OLIC PANEL (14) bilirubin, total 0.2 mg/dL 0.0-1. 2 Not Available [facility] [address] [place], [address], 02/20/2024 22:07:00 02/19/19 25 02/20/2024 COMP. METAB OLIC PANEL (14) alkaline phosphatase 84 IU/L 44-121 Not Available [facility] Department [address] [place], [address], 02/20/2024 22:07:00 02/19/19 25 02/20/2024 COMP. METAB OLIC PANEL (14) AST (SGOT) 16 IU/L 0-40 Not Available [facility] Department [address] [place], [address], 02/20/2024 22:07:00 02/19/19 25 02/20/2024 COMP. METAB OLIC PANEL (14) ALT (SGPT) 20 IU/L 0-32 Not Available [facility] Department [address] [place], [address], 02/20/2024 22:07:00 02/19/19 25 02/20/2024 HbA1c (hemo globi n A1c), blood HbA1c 7.5 Not Available In-Office Order Internal Use Only DO Not Attach Compendium DO Not Attach Compendium, Do Not Delete/merge, [id number] 02/20/2024 12:37:24 07/18/19 25 07/17/2024 LIPID PANEL cholesterol, total 174 mg/dL 100-19 9 Not Available [facility] Department [address] [place] [address], [id number], 07/18/2024 00:08:22 07/18/19 25 07/17/2024 LIPID PANEL triglyceride s 219 mg/dL 0-149 above high normal Not Available [facility] Department [address] [place] [address], [id number], 07/18/2024 00:08:22 07/18/19 25 07/17/2024 LIPID PANEL HDL cholesterol 50 mg/dL 40-999 Not Available [facility] Department [address] [place], [address], 07/18/2024 00:08:22 07/18/19 25 07/17/2024 LIPID PANEL VLDL cholesterol oanh 44 mg/dL 5-40 above high normal Not Available [facility] Department [address] [place] [address], [id number], 07/18/2024 00:08:22 07/18/19 25 07/17/2024 LIPID PANEL LDL chol calc (nih) 113 mg/dL 0-99 above high normal Not Available [facility] [address] [place] [address], [id number], 07/18/2024 00:08:22 07/18/19 25 07/17/2024 COMP. METAB OLIC PANEL (14) glucose 159 mg/dL 70-99 above high normal Not Available [facility] [address] [place], [address], 07/18/2024 00:08:23 07/18/19 25 07/17/2024 COMP. METAB OLIC PANEL (14) BUN 24 mg/dL 6-24 Not Available [facility] Department [address] [place], [address], 07/18/2024 00:08:23 07/18/19 25 07/17/2024 COMP. METAB OLIC PANEL (14) creatinine 1.02 mg/dL 0.76-1 .27 Not Available [facility] Department [address] [place] [address], [id number], 07/18/2024 00:08:23 07/18/19 25 07/17/2024 COMP. METAB OLIC PANEL (14) eGFR 64 >=60 Units for eGFR value s are mL/mi n/1.7 3 The eGFR Calcu latio n has not been valid ated for patie nts under the age of 18. If test resul ts are displ ayed for a patie nt under the age of 18, disre verna that value . Not Available [facility] [address] [place] [address], [id number], 07/18/2024 00:08:23 07/18/19 25 07/17/2024 COMP. METAB OLIC PANEL (14) BUN/creatini ne ratio 24 9-23 above high normal Not Available [facility] Department [address] [place] [address], [id number], 07/18/2024 00:08:23 07/18/19 25 07/17/2024 COMP. METAB OLIC PANEL (14) sodium 140 mmol/ L 134-14 4 Not Available [facility] [address] [place] [address], [id number], 07/18/2024 00:08:23 07/18/19 25 07/17/2024 COMP. METAB OLIC PANEL (14) potassium 5.1 mmol/ L 3.5-5. 2 Not Available [facility] Department [address] [place] [address], [id number], 07/18/2024 00:08:23 07/18/19 25 07/17/2024 COMP. METAB OLIC PANEL (14) chloride 102 mmol/ L 96-106 Not Available [facility] Department [address] [place] [address], [id number], 07/18/2024 00:08:23 07/18/19 25 07/17/2024 COMP. METAB OLIC PANEL (14) carbon dioxide, total 24 mmol/ L 20-29 Not Available [facility] Department [address] [place] [address], [id number], 07/18/2024 00:08:23 07/18/19 25 07/17/2024 COMP. METAB OLIC PANEL (14) calcium 10.5 mg/dL 8.7-10 .2 above high normal Not Available [facility] [address] [place], [address], 07/18/2024 00:08:23 07/18/19 25 07/17/2024 COMP. METAB OLIC PANEL (14) protein, total 7.1 g/dL 6.0-8. 5 Not Available [facility] Department [address] [place] [address], [id number], 07/18/2024 00:08:23 07/18/19 25 07/17/2024 COMP. METAB OLIC PANEL (14) albumin 4.8 g/dL 3.8-4. 9 Not Available [facility] [address] [place], [address], 07/18/2024 00:08:23 07/18/19 25 07/17/2024 COMP. METAB OLIC PANEL (14) globulin, total 2.3 g/dL 1.5-4. 5 Not Available [facility] [address] [place], [address], 07/18/2024 00:08:23 07/18/19 25 07/17/2024 COMP. METAB OLIC PANEL (14) A/G ratio 2.0 1.2-2. 2 Not Available [facility] Department [address] [place], [address], 07/18/2024 00:08:23 07/18/19 25 07/17/2024 COMP. METAB OLIC PANEL (14) bilirubin, total 0.4 mg/dL 0.0-1. 2 Not Available [facility] Department [address] [place] [address], [id number], 07/18/2024 00:08:23 07/18/19 25 07/17/2024 COMP. METAB OLIC PANEL (14) alkaline phosphatase 96 IU/L 44-121 Not Available [facility] Department [address] [place], [address], 07/18/2024 00:08:23 07/18/19 25 07/17/2024 COMP. METAB OLIC PANEL (14) AST (SGOT) 23 U/L 0-40 Not Available [facility] Department [address] [place], [address], 07/18/2024 00:08:23 07/18/19 25 07/17/2024 COMP. METAB OLIC PANEL (14) ALT (SGPT) 30 IU/L 0-32 Not Available [facility] Department [address] [place], [address], 07/18/2024 00:08:23 07/18/19 25 07/17/2024 HbA1c (hemo globi n A1c), blood HbA1C 7.3 % Not Available In-Office Order Internal Use Only DO Not Attach Compendium DO Not Attach Compendium, Do Not Delete/merge, [id number] 07/17/2024 10:35:38 09/25/19 25 09/21/2024 XR, hip + pelvi s, bilat eral No observ ation record ed. [facility] ([facility]) [address] [place], [address], 10/02/2024 09:17:55 09/25/19 25 09/20/2024 XR, lumbo sacra l spine , 2 or 3 view No observ ation record ed. [facility] ([facility]) [address] [facility] [place], [address], 10/02/2024 09:17:55 11/03/19 MAMMO , scree ghassan, bilat eral No observ ation record ed. [email or web address] Not Available 2024 09:04:43 Result Notes None recorded. Problems Name Problem SNOMED Code Status Onset Date Resolution Date Notes Provider Name and Address Organization Details Recorded Time Tobacco dependence syndrome 46553305 Active 1ppd May Freeman PA-C Attn: Accounting ,[address] [place], [address] , [facility] 6 12:03:30 Blood pressure above reference range 72536405 Active May Freeman PA-C Attn: Accounting ,[address] [facility], [place], [address] , [place] [facility] 6 10:48:36 Dyspnea 440444527 Active Matilde Turner RN BSN null, [place] [facility] 16:27:37 Hyperchole sterolemia 42451410 Active May Freeman PA-C Attn: Accounting ,[address] [place], [address] , [facility] 6 08:30:50 Essential hypertensi on 58149534 Active May Freeman PA-C Attn: Accounting ,[address] [place], [address] , [place] [facility] 6 12:03:30 Total abdominal hysterecto my Active 2004 OSMAN KAPOOR Attn: Accounting ,[address] [place], [address] , [place] [facility] 4 14:35:09 Malignant neoplasm of cervix uteri 908963123 Active 2004 May Freeman PA-C Attn: Accounting ,[address] [place], [address] , [place] [facility] 10:27:25 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 cell May Freeman PA-C Attn: Accounting ,[address] [place], [address] , [place] [facility] 6 10:27:25 Body mass index 30+ - obesity 561672812 Active 2020 ASHLEY WAKEFIELD, [employer] [address] [place], [address] , [place] [facility] 1 10:46:38 Chronic obstructiv e pulmonary disease 16323143 Active 2020 OSMAN KAPOOR Attn: Accounting ,[address] [facility], [place], [address] , [place] [facility] 1 17:39:09 Asthma 451676419 Active 2020 OSMAN KAPOOR Attn: Accounting ,[address] [facility], [place], [address] , [place] [facility] 1 17:39:20 Addiction 67783449 Active 2021 5 years free from usins crack OSMAN KAPOOR Attn: Accounting ,[address] [facility], [place], [address] , [place] [facility] 2 10:39:03 Constipati on 61091620 Active 2021 OSMAN KAPOOR Attn: Accounting ,[address] [facility], [place], [address] , [place] [facility] 2 09:19:14 Smoker 06603024 Active 2022 OSMAN KAPOOR Attn: Accounting ,[address] [facility], [place], [address] , [place] [facility] 3 13:43:20 History of malignant neoplasm of cervix 100365158 Active 2022 OSMAN KAPOOR Attn: Accounting ,[address] [facility], [place], [address] , [place] [facility] 3 13:47:06 Hyperlipid emia 55800631 Active 2022 OSMAN KAPOOR Attn: Accounting ,[address] [facility], [place], [address] , [place] [facility] 3 13:47:23 Menopausal syndrome 170889811 Active 2022 OSMAN KAPOOR Attn: Accounting ,[address] [facility], [place], [address] , [facility] 3 13:47:25 Obesity 851551026 Active 2022 OSMAN KAPOOR Attn: Accounting ,[address] [facility], [place], [address] , [facility] 3 13:47:27 Type 2 diabetes mellitus without complicati on 445922403 Active 2022 OMSAN KAPOOR Attn: Accounting ,[address] [facility], [place], [address] , [facility] 3 13:47:29 Adrenal adenoma 722235557 Active 2024 b/l adernal adenomas OSMAN KAPOOR Attn: Accounting ,[address] [facility], [place], [address] , [facility] 5 12:33:49 Problem Notes None recorded. Procedures Surgical History Date Name Laterality Status Provider Name and Address Organization Details Recorded Time 01/08/20 Date of Last Mammogram completed Fadia Sutton MA [facility] 03/04/2020 10:10:23 02/07/19 05 Hysterectomy completed Nandokevin Levine [facility] 06/23/2015 10:18:18 Tonsillectomy completed Nando Levine [facility] 10:18:18 LEEP completed Nandokevin Levine [facility] 06/23/19 16 10:18:18 Caesarean Section completed Nandokevin Levine [facility] 06/23/2015 10:18:18 Imaging Results None recorded. Procedure Notes None recorded. Medical Equipment None Reported. Allergies Allergen ID Allergen Name Allergen Category Reaction Reaction Severity Criticality Documentation Date Start Date Code Code System Note Provider Name and Address Organization Details Recorded Time 541989 silicones environme nt,medica tion rash Not available Not available 07/04/2019 9778 RxNorm Saba Puentes MA null, [place] - [facility] 0 15:57:54 280354 bupropion Not available headache severe Not available 11/07/2019 18919 RxNorm also irrit donna oviedo and jj Coker MD Attn: Eleanor tubbs,[address] [facility], [place], [address], [facility] 0 11:39:48 Medications Name Sig Start Date Stop Date Status Note LastModified by Organization Details LastModified Time Prescriptio n - Prior Authorizati on Request 06/25 completed Not Available Not Available Not Available cyclobenzap rine 10 mg tablet Take 1 tablet(s) every day by oral route at bedtime. active Not Available Not Available No t Available atorvastati n 40 mg tablet TAKE 1 TABLET BY MOUTH EVERYDAY AT BEDTIME 01/23 completed Not Available Not Available Not Available metformin 500 mg tablet TAKE 1 TABLET BY MOUTH TWICE A DAY 02/17 completed Not Available Not Available Not Available bupropion HCl SR 150 mg tablet,12 hr sustained-r elease Take 1 tablet twice a day by oral route. 06/29 completed Not Available Not Available Not Available atorvastati n 80 mg tablet TAKE 1 TABLET BY MOUTH EVERY DAY active Not Available Not Available No t Available venlafaxine ER 37.5 mg capsule,ext ended release 24 hr TAKE 1 CAPSULE BY MOUTH EVERY DAY FOR 90 DAYS 11/26 completed Not Available Not Available Not Available venlafaxine ER 75 mg capsule,ext ended release 24 hr TAKE 1 CAPSULE BY MOUTH EVERY DAY FOR 90 DAYS active Not Available Not Available No t Available benzonatate 200 mg capsule TAKE 1 CAPSULE BY MOUTH THREE TIMES A DAY NEEDED FOR COUGH 11/19 completed Not Available Not Available Not Available Nicorette 2 mg gum Chew 1 piece of gum every 2 hours by oral route. 06/25 completed Not Available Not Available Not Available meloxicam 15 mg tablet TAKE 1 TABLET BY MOUTH EVERY DAY 03/04 completed Not Available Not Available Not Available metronidazo le 0.75 % (37.5 mg/5 gram) vaginal gel 03/28 completed Not Available Not Available Not Available lisinopril 20 mg tablet Take 1 tablet every day by oral route. 03/28 completed Not Available Not Available Not Available clobetasol 0.05 % topical cream 03/28 completed Not Available Not Available Not Available ciprofloxac in 500 mg tablet 06/25 completed Not Available Not Available Not Available oxycodone-a cetaminophe n 5 mg-325 mg tablet 03/04 completed Not Available Not Available Not Available amlodipine 10 mg tablet TAKE 1 TABLET BY MOUTH EVERY DAY active Not Available Not Available No t Available cephalexin 500 mg capsule TAKE 1 CAPSULE BY MOUTH EVERY 6 HOURS FOR 7 DAYS 10/18 completed Not Available Not Available Not Available bupropion HCl 75 mg tablet take 1 in am, 1 after lunch, and one around evening meal. 03/04 completed Not Available Not Available Not Available nicotine 21 mg/24 hr daily transdermal patch APPLY 1 PATCH TOPICALLY EVERY DAY 06/25 completed Not Available Not Available Not Available lisinopril 30 mg tablet TAKE 1 TABLET BY MOUTH EVERY DAY 06/25 completed Not Available Not Available Not Available diclofenac sodium 75 mg tablet,sarah yed release TAKE 1 TABLET BY MOUTH EVERY DAY 12/26 completed Not Available Not Available Not Available montelukast 10 mg tablet Take 1 tablet(s) every day by oral route at bedtime. 03/04 completed Not Available Not Available Not Available methylpredn isolone 4 mg tablets in a dose pack TAKE 6 TABLETS ON DAY 1 DIRECTED ON PACKAGE AND DECREASE BY 1 TAB EACH DAY FOR A TOTAL OF 6 DAYS 10/23 completed Not Available Not Available Not Available albuterol sulfate HFA 90 mcg/actuati on aerosol inhaler INHALE 2 PUFFS BY MOUTH EVERY 4 HOURS active Not Available Not Available No t Available Vitamin D2 1,250 mcg (50,000 unit) capsule 03/28 completed Not Available Not Available Not Available losartan 50 mg-hydrochl orothiazide 12.5 mg tablet TAKE 1 TABLET BY MOUTH EVERY DAY active Not Available Not Available No t Available oxybutynin chloride 5 mg tablet Take 1 tablet 3 times a day by oral route. 03/04 completed Not Available Not Available Not Available ondansetron 4 mg disintegrat ing tablet Place 1 tablet twice a day by transling ual route as needed for 5 days. 10/09 completed Not Available Not Available Not Available sertraline 50 mg tablet Take 1 tablet every day by oral route. 10/18 completed Not Available Not Available Not Available doxycycline hyclate 100 mg tablet TAKE 1 TABLET BY MOUTH TWICE A DAY 10/23 completed Not Available Not Available Not Available nitrofurant oin monohydrate /macrocryst als 100 mg capsule Take 1 capsule every 12 hours by oral route for 5 days. 10/18 completed Not Available Not Available Not Available duloxetine 60 mg capsule,del ayed release take one capsule daily active Not Available Not Available No t Available Atrovent HFA 17 mcg/actuati on aerosol inhaler INHALE 2 PUFFS BY MOUTH 3 TIMES A DAY active Not Available Not Available No t Available varenicline tartrate 1 mg tablet TAKE 1 TABLET BY MOUTH TWICE A DAY active Not Available Not Available No t Available varenicline tartrate 0.5 mg (11)-1 mg (42) tablets in a dose pack take as prescribe d 2024 active Not Available Not Available Not Avai lable BD Ultra-Fine Short Pen Needle 31 gauge x 5/16 Use to inject Trulicity every week by subcutane ous route 2022 active Not Available Not Available Not Avai lable Symbicort 160 mcg-4.5 mcg/actuati on HFA aerosol inhaler INHALE 2 PUFFS INTO THE LUNGS TWICE A DAY 2024 active Not Available Not Available Not Avai lable Dulera 100 mcg-5 mcg/actuati on HFA aerosol inhaler INHALE 2 PUFFS BY MOUTH TWICE DAILY 09/23 completed Not Available Not Available Not Available OneTouch Verio test strips TEST TWICE DAILY active Not Available Not Available No t Available Victoza 2-Tyson 0.6 mg/0.1 mL (18 mg/3 mL) subcutaneou s pen injector INJECT 1.2 MG UNDER THE SKIN ONCE DAILY 02/17 completed Not Available Not Available Not Available Jardiance 25 mg tablet TAKE 1 TABLET BY MOUTH EVERY DAY FOR 30 DAYS active Not Available Not Available No t Available Trulicity 1.5 mg/0.5 mL subcutaneou s pen injector INJECT 1.5MG SUBCUTANE OUSLY ONE TIME PER WEEK active Not Available Not Available No t Available Trulicity 0.75 mg/0.5 mL subcutaneou s pen injector Inject 0.75 mg every week by subcutane ous route. 07/17 completed Not Available Not Available Not Available OneTouch Verio Flex Meter active Not Available Not Available Not Available TRUEplus Pen Needle 32 gauge x 5/32 INJECT ONE DAILY 2022 active Not Available Not Available Not Avai lable fluticasone 232 mcg-salmete rol 14 mcg/actuati on breath activated powdr INL 1 PUFF PO BID 10/23 completed Not Available Not Available Not Available AirDuo RespiClick 113 mcg-14 mcg/actuati on breath activated 2 puffs daily 09/23 completed Not Available Not Available Not Available Ozempic 0.25 mg or 0.5 mg (2 mg/1.5 mL) subcutaneou s pen injector Inject 0.5 mg every week by subcutane ous route. 02/17 completed Not Available Not Available Not Available Wixela Inhub 500 mcg-50 mcg/dose powder for inhalation INHALE 1 PUFF BY MOUTH TWICE DAILY 09/23 completed Not Available Not Available Not Available OneTouch Delica Plus Lancet 33 gauge TEST TWICE DAILY active Not Available Not Available No t Available Rybelsus 3 mg tablet active Not Available Not Available No t Available Trulicity 3 mg/0.5 mL subcutaneou s pen injector INJECT 3 MG SUBCUTANE OUSLY WEEKLY 2024 active Not Available Not Available Not Avai lable Trulicity 4.5 mg/0.5 mL subcutaneou s pen injector INJECT 4.5 MG EVERY WEEK BY SUBCUTANE OUS ROUTE DIRECTED FOR 30 DAYS, FOR DIABETES. active Not Available Not Available No t Available Ozempic 0.25 mg or 0.5 mg (2 mg/3 mL) subcutaneou s pen injector Inject 0.5mg every week by subcutane ous route 02/17 completed Not Available Not Available Not Available Vitals Date Recorded Body height Body mass index (BMI) Body weight Systolic And Diastolic Provider Name and Address Organization Details Last Updated DateTime 02/17/2023 170.18 cm 30.1 kg/m2 64920.14 g 120/72 mm[Hg] Saba Puentes [place] [facility] 02/17/2023 11:03:15 Date Recorded Body height Body mass index (BMI) Body weight Heart rate Oxygen saturation Oxygen saturation in Arterial blood by Pulse oximetry Systolic And Diastolic Provider Name and Address Organization Details Last Updated DateTime 5 170.18 cm 27.6 kg/m2 52062.6 6 g 78 /min 98 % 98 % 133/89 mm[Hg] Saba Puentes MA [facility] 5 12:28:53 Date Recorded Body height Body mass index (BMI) Body weight Heart rate Oxygen saturation Oxygen saturation in Arterial blood by Pulse oximetry Systolic And Diastolic Provider Name and Address Organization Details Last Updated DateTime 5 170.18 cm 28.7 kg/m2 37649.1 g 77 /min 96 % 96 % 123/86 mm[Hg] Saba Puentes MA [facility] 5 10:17:54 Date Recorded Body height Body mass index (BMI) Body weight Heart rate Oxygen saturation Oxygen saturation in Arterial blood by Pulse oximetry Systolic And Diastolic Provider Name and Address Organization Details Last Updated DateTime 3 170.18 cm 30.9 kg/m2 93736.7 g 70 /min 96 % 96 % 120/74 mm[Hg] Pam Levine MA [facility] 3 11:56:01 Date Recorded Body height Body mass index (BMI) Body weight Heart rate Oxygen saturation Oxygen saturation in Arterial blood by Pulse oximetry Systolic And Diastolic Provider Name and Address Organization Details Last Updated DateTime 4 170.18 cm 28.7 kg/m2 25636.4 g 100 /min 98 % 98 % 111/77 mm[Hg] Saba Puentes MA [facility] 4 11:11:46 Social History Question Answer Notes LastModified by Organizat ion Details LastModified Time Tobacco Smoking Status Current Every Day Smoker Nando angel [facility] 06/23/2015 10:18:18 Do You Have An Advance Directive? No Information not available 06/23/2015 What Is Your Level Of Caffeine Consumption? Occasional -1 Cup Of Coffee A Day Information not available 03/04/2020 How Much Tobacco Do You Chew? None Information not available 06/23/2015 In The 14 Days Before Symptom Onset, Have You Had Close Contact With A Laboratory-confi rmed COVID-19 While That Case Was Ill? No Information not available 06/25/2021 In The 14 Days Before Symptom Onset, Have You Had Close Contact With A Person Who Is Under Investigation For COVID-19 While That Person Was Ill? No Information not available 06/25/2021 Have You Been To An Area Known To Be High Risk For COVID-19? No Information not available 06/25/2021 What Type Of Diet Are You Following? REGULAR Information not available 06/23/2015 Education 4 Year College Information not available 06/23/2015 Are There Any Guns Present In Your Home? No Information not available 06/23/2015 Hard Of Hearing Or Deaf In One Or Both Ears? No Information not available 06/23/2015 Legally Blind In One Or Both Eyes? No Information not available 06/23/2015 Live Alone Or With Others? With Others Boyfriend And Son Information not available 06/23/2015 Do You Have A High School Diploma Or Higher Education? Yes Information not available 06/25/2021 Do You Sometimes Have To Miss Your Medical Appointments Due To Difficult Getting Transportation? No Information not available 06/25/2021 Do You Feel Unfairly Treated Due To Things Such As Race, Age, Gender, Disability Or Some Other Reason? No Information not available 06/25/2021 Do You Feel Physically And Emotionally Safe While Living At Home? Yes Information not available 06/25/2021 Do You Feel Physically And Emotionally Safe In Your Neighborhood Or Other Public Places? Yes Information not available 06/25/2021 Marital Status Single Informatio n not available 06/23/2015 What Was The Date Of Your Most Recent Tobacco Screening? 07/17/2024 Information not available 07/17/2024 How Many Children Do You Have? 5 Information not available 06/23/2015 Performs Monthly Self-breast Exam? Yes Information not available 06/23/2015 What Is Your Relationship Status? Single Information not available 06/25/2021 Seat Belts Used Routinely Yes Information not available 06/23/2015 Are You Sexually Active? Yes Information not available 06/23/2015 Smoke Alarm In Home Yes Information not available 06/23/2015 Do You Have Smoke And Carbon Monoxide Detectors In Your Home? Yes Information not available 06/25/2021 Are You Passively Exposed To Smoke? Yes Information not available 06/25/2021 How Much Tobacco Do You Smoke? 0.5 PPD 3/4 Information not available 03/04/2020 General Stress Level Medium Information not available 07/04/2019 Do You Use Sunscreen Routinely? No Information not available 06/23/2015 On What Date Was Tobacco Cessation Counseling Provided? 07/17/2024 Information not available 07/17/2024 How Many Years Have You Smoked Tobacco? 41 [email or web address] Information not available 03/28/2017 Sex: Female Functional Status Question Answer Note LastModified by Organizat ion Details LastModified Time Do you use any illicit or recreational drugs? No Information not available 06/25/2021 What is your level of alcohol consumption? Occasional Information not available 06/23/2015 Do you or have you ever used smokeless tobacco? Never used smokeless tobacco Information not available 07/04/2019 Are you currently employed? Yes Information not available 06/23/2015 Are you able to care for yourself independently? 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 Never used electronic cigarettes Information not available 07/04/2019 What is your exercise level? None Information not available 06/23/2015 Mental Status Question Answer Note LastModified by Organization D etails LastModified Time Do you feel stressed (tense, restless, nervous, or anxious, or unable to sleep at night)? [id number] [email or web address] Information not available 07/03/2021 Family History Relationship Description Onset Age of this Age Resolved Age Notes LastModified by Organization Details LastModified Time Mother Diabetes mellitus Not available 2015 10:18:18 Father Diabetes mellitus Not available 2015 10:18:18 Medical History Condition Response Coronary Artery Disease N Other N High Blood Pressure Y Atrial Fibrillation N Thyroid Problems N Kidney or Bladder Problems N GI Problems N Depression N COPD Y Blood Clots N Skin Problems N Anemia N Heart Attack (SC) N Anxiety Disorder N Diabetes N Muscle, Joint, or Bone Problems N Seizures/Epilepsy N Acid Reflux (GERD) N Cancer Y Stroke N Asthma N Allergies N ADHD N High Cholesterol N Hepatitis N Liver Disease N Schizophrenia N Headaches N Heart Failure N Osteoporosis N Gynecological History Statement/Question Response Date of Last Mammogram 01/08/2020 Date of LMP Menses Monthly N Date of Last Pap Smear Age at Menarche 13 Current Control Method Hysterectom y Age at First Child 20 Obstetrics History GPAL:G 5 P 3 2 2 5 Type Value Multiple Births 1 Full Term 3 Induced 2 Spontaneous 0 Premature 2 Living 5 Ectopics 0 Total 5 Immunizations Vaccine Type Date Status Note Provider Nam e and Address Organization Details Recorded Time typhoid, ViCPs 3 completed Not Available [facility] 07/17/2024 10:11:12 pneumococcal polysaccharide PPV23 2 completed Saba Puentes [place] null, [place] [facility] 07/30/2021 16:02:05 Hep B, adolescent or pediatric 3 completed Rena Jaime CMA [place], [place] - [place] 08/24/2022 14:08:17 Tdap 3 completed Pam Levine [place], [place] - [place] 10/18/2022 12:32:19 Past Encounters Encounter ID Performer Location Encounter Start Date Encounter Closed Date Diagnosis/Indication Diagnosis SNOMED-CT Code Diagnosis ICD10 Code Diagnosis IMO Codes Diagnosis Note [id number] Ashia Wheat MD [facility] (Adult Med) [address] [place] [address] 06/23/2015 09:55:48 06/23/2015 10:49:36 Blood pressure above reference range 33309976 I10 Adult heal th examination 480641015 Z00.01 50YO Caucaisan female with a hx/o cervical and squamous cell carciomas here to establish care. Her only complaint today is SOB that is worsened with exertion. She has a 1ppd x 20 years Dyspnea 027337191 R06.00 Will order chest xray and PFTs Tobacco de pendence syndrome 34369116 F17.290 Will initiate wellbutrin 150mg Qd x 1 week and then BID [id number] Ashia Wheat MD [facility] (Adult Med) [address] [place] [address] 06/30/2015 10:57:54 06/30/2015 12:04:48 Dyspnea 091064972 R06.00 Given printout to schedule PFTs today Will send for chest xray SHe lost her albuterol inhaler and would like another prescripti on - will send to [facility] and use 340b Essential hypertension 35257039 I10 Increase lisiniopri l to 30mg QD RTC 3 months Tobacco de pendence syndrome 39983522 F17.290 Did not like Wellbutrin - will think about doing the patches - currently does not want to start that [id number] Kenia Coker MD [facility] [address] [place] [address] 03/28/2017 15:30:54 03/29/2017 13:24:27 Screening mammography 91585037 Z12.31 Patient's mother of breast cancer; pt's last mammogram was several years ago. Tobacco user 590706668 Z 72.0 patient encouraged to quit smoking Dyspnea on exertion 6084 5006 R06.09 evaluate for CHF vs COPD; patient has used inhalers with improved symptoms in the past Menopausal syndrome 1237 51400 N95.9 Discussed risks of estrogen replacemen t therapy; will try sertraline for sleep and to alleviate night sweats. Essential hypertension 90707887 I10 will try lifestyle modificati ons and recheck BP in 1 month; if still high will try lisinopril . Screening for malignant neoplasm of colon 710546388 Z12.11 patient referred for colonoscop y-routine. [id number] Kenia Coker MD [facility] [address] [place] [address] 10/18/2017 14:52:05 10/19/2017 11:44:33 Screening for malignant neoplasm of colon 348624829 Z12.11 Essential hypertension 40650368 I10 limit salt and caffeine intake. Moderate p ersistent asthma 381359074 J45.40 asthma is well controlled ; without dulera was using ventolin 2-3 times a day. Low back pain 297498294 M54.5 [id number] Kenia Coker MD [facility] [address] [place] [address] 01/24/2018 11:54:24 01/24/2018 13:31:56 Jhon hematuria 091889992 R31.0 Moderate p ersistent asthma 859855392 J45.40 asthma is well controlled ; without dulera was using ventolin 2-3 times a day. [id number] Kenia Coker MD [facility] [address] [place] [address] 11/17/2018 15:22:22 11/20/2018 12:21:46 History of hematuria 164580526 Z87.448 Essential hypertension 80730539 I10 limit salt and caffeine intake. Chronic low back pain 27 9223018 M54.5 Screening mammography 24 622687 Z12.31 Patient's mother of breast cancer; pt's last mammogram was several years ago. Sleep annette ramos disturbance 90883105 G47.9 related to menopause. Standard ed adult depression screening tool completed [id number] 83027 Z13.89 mild depression ; will monitor and consider adding an SSRI. [id number] Kenia Coker MD [facility] [address] [place] [address] 12/15/2018 15:12:29 12/25/2018 09:02:03 Moderate persistent asthma 050037315 J45.40 Thoracic o utlet syndrome 406110190 G54.0 [id number] Kenia Coker MD [facility] [address] [place] [address] 05/11/2019 08:50:03 05/12/2019 19:34:58 [id number] Kenia Coker MD [facility] [address] [place] [address] 07/04/2019 10:27:13 07/10/2019 07:44:40 Closed fracture of rib 13545943 S22.32XD To whom it may concern: Tameka Hackett has a rib fracture which will 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 She cannot do lifting, bending, twisting, or carrying more than a few pounds at a time. I do not see how she could assist a patient with transfers or dressing. Please help her with short term disability or whatever options can provide her with income while she recovers. Yours truly, Kenia Coker MD Urinary incontinence 165 234610 R32 Depression screening 171 936715 Z13.31 patient does not appear to be significan tly depressed. [id number] Kenia Coker MD [facility] [address] [place] [address] 03/04/2020 08:22:11 03/06/2020 08:01:30 Trying to give up smoking 071352682 F17.210 Screening for malignant neoplasm of colon 363105704 Z12.11 Screening mammography 24 417168 Z12.31 Patient's mother of breast cancer; pt's last mammogram was several years ago. Moderate p ersistent asthma 929970590 J45.40 Essential hypertension 71938688 I10 limit salt and caffeine intake. Generalize d osteoarthritis 515511651 M15.9 [id number] OSMAN KAPOOR [facility] [address] [place] [address] 10/23/2020 08:33:40 10/24/2020 10:00:33 Chronic obstructive pulmonary disease 73861061 J44.9 patient using 3 inhalers after seeing pulmonolog ist last year. - down to half per pack and stopped smoking- asvised quitting- f/u for medication [id number] OSMAN KAPOOR [facility] [address] [place] [address] 06/25/2021 09:52:07 06/26/2021 09:58:25 Prediabetes 147614798 R73.03 5.7 IN 2016, repeat labs Chronic ob structive pulmonary disease 03721047 J44.9 patient using 3 inhalers after seeing pulmonolog ist last year. She continues using them with good control. due for LDCT scan at age 57. Continues smoking approx 1ppd. she is wanting to quit. does not want wellbutrin . has tried gum and patches with no success. - down to half per pack and stopped smoking- asvised quitting- f/u for medication Essential hypertension 32233982 I10 BP 132/80 - switching to losartan due to cough once starting lisinopril - continue amlodipine .- f/u one month or sooner if BP not controlled - obtain labs today Obesity 430886168 E66.9 BMI 32.3, mostly truncal obesity. She is encouraged to incerase physical activity Vitamin D deficiency 347 88468 E55.9 Paresthesi a of upper limb 27916873 R20.2 left hand tingling for about 2 weeks. not a/w chest pain, radiation to jaw. - advised ER if above develop Menopausal syndrome 1237 19585 N95.9 patient having issues with sleep once menopause hit. She is open to trying something to help. - start venlafaxin e- f/u one month Screening for malignant neoplasm of colon 506351117 Z12.11 has not done. denies fam hx colon cancer, personal hx dark/blood y stools, change in stools Screening mammography 24 000550 Z12.31 mammogram 2019 normal [id number] Robi camacho MD [facility] [address] [place] [address] 07/03/2021 09:49:05 07/07/2021 09:26:31 Essential hypertension 12094076 I10 BP 126/90 todayon amlodipine and started combo losartan 50/HCTZ 12.5 one week agopt reports BP at home 90s/60s, has wrist cuff, sx of dizziness and lightheade dnessdid not take meds todayadvis ed pt to cut combo pill in halfc/w taking BP at homef/u if BP is not controlled , goal BP 130/80 Type 2 himanshu betes mellitus without complication 630491372 E11.9 06/2021 a1c 10.6starte d on jardiance 25 one wk agorefuses metforminB S 180-240 all dayconcern ed BS has not dropped low enoughreas sured pt to give medication more timec/w checking BS daily, goal fasting <120, post prandial 140-180has f/u in 3 wks Menopausal syndrome 1237 79520 N95.9 improvemen t with effexor in anxiety and stressable to sleep through the night Tobacco de pendence syndrome 93633194 F17.200 has tried wellbutrin , patches, and gum w/o successwou ld like to try chantixdis cussed with pt, kelsey version is available, but depends if pharmacy carries it [id number] OSMAN KAPOOR [facility] [address] [place] [address] 07/30/2021 15:08:05 08/03/2021 12:16:06 Essential hypertension 89776084 I10 BP 126/90 todayon amlodipine and started combo losartan 50/HCTZ 12.5 one week agopt reports BP at home 90s/60s, has wrist cuff, sx of dizziness and lightheade dnessdid not take meds todayadvis ed pt to cut combo pill in halfc/w taking BP at homef/u if BP is not controlled , goal BP 130/80 Type 2 himanshu betes mellitus without complication 315280257 E11.9 06/2021 a1c 10.6. BS 180-240 all daystarted on jardiance 25 and doing well. refuses metformin and discussed GLP-1. agrees to try weekly injection. denies any hx in self or fam of thyroid cancer. pen is shown to patient at [facility] t. foot exam: normal 07/30/21pps v23: 07/30/21alb /cr: needs to obtaineye exam: given order Menopausal syndrome 1237 43248 N95.9 improvemen t with effexor in anxiety and stressable to sleep through the night Tobacco de pendence syndrome 26532991 F17.200 has tried wellbutrin , patches, and gum w/o successwou ld like to try chantixdis cussed with pt, kelsey version is available, but depends if pharmacy carries it Obesity 125724970 E66.9 BMI improved to 31.2 from 32.3, mostly truncal obesity. She is encouraged to increase physical activity Constipation 43977664 K5 9.00 - increase fiber- try prune juice- increase veggies and fruits Low back pain 368523999 M54.50 >5 years low back pain. pain is daily pain is usually 5/10 and with 8/10 when bad. activity makes it worse. diclofenac can help. denies red flag symptoms - xray- pt Irregular heart beat 361 538895 R00.8 c/o of skipping beats at night time before bed Diabetes mellitus 492975 09 E11.9 [id number] OSMAN KAPOOR [facility] [address] [place] [address] 09/29/2021 13:46:23 10/05/2021 14:33:47 Essential hypertension 60227681 I10 BP 118/80 today, controlled on amlodipine and combo losartan 50/HCTZ 12.5pt reports BP at home 90s/60s, has wrist cuff, sx of dizziness and lightheade dnessdid not take meds todayadvis ed pt to cut combo pill in halfc/w taking BP at homef/u if BP is not controlled , goal BP 130/80 Type 2 himanshu betes mellitus without complication 573713989 E11.9 7.1% (09/2021) 06/2021 a1c 10.6. BS 180-240 all day medication regiment: trulicity increased to 3mg, jardiance 25mg Statin: atorvastat in 40mgfoot exam: normal 07/30/21pps v23: 07/30/21alb /cr: needs to obtaineye exam: given order Menopausal syndrome 1237 34076 N95.9 improvemen t with effexor in anxiety and stressable to sleep through the night Tobacco de pendence syndrome 51650386 F17.200 has tried wellbutrin , patches, and gum w/o successwou ld like to try chantixdis cussed with pt, kelsey version is available, but depends if pharmacy carries it Obesity 376252021 E66.9 BMI improved to 31.2 from 32.3, mostly truncal obesity. She is encouraged to increase physical activity Low back pain 252265013 M54.50 >5 years low back pain. pain is daily pain is usually 5/10 and with 8/10 when bad. activity makes it worse. diclofenac can help. denies red flag symptoms - xray- pt Asthma 921450315 J45.90 9 refill Hyperlipidemia 26442296 E78.5 LDL 830 [id number] OSMAN KAPOOR [facility] [address] [place] [address] 04/02/2022 14:19:18 04/02/2022 14:57:42 Essential hypertension 56353195 I10 BP 118/72 today, controlled on amlodipine and combo losartan 50/HCTZ 12.5pt reports BP at home 90s/60s, has wrist cuff, sx of dizziness and lightheade dnessdid not take meds todayadvis ed pt to cut combo pill in halfc/w taking BP at homef/u if BP is not controlled , goal BP 130/80 Type 2 himanshu betes mellitus without complication 895481777 E11.9 6.5 % (04/2022) 7.1% (09/2021) 10.6 (06/2021) medication regiment: trulicity 3mg, jardiance 25mg Statin: atorvastat in 40mgfoot exam: normal 07/30/21pps v23: 07/30/21alb /cr: normal 04/2022eye exam: given order Menopausal syndrome 1237 65231 N95.9 improvemen t with effexor in anxiety and stressable to sleep through the night Tobacco de pendence syndrome 54044846 F17.200 has tried wellbutrin , patches, and gum w/o successwou ld like to try chantix Obesity 138475753 E66.9 BMI improved to 31.2 from 32.3, mostly truncal obesity. She is encouraged to increase physical activity Low back pain 097802504 M54.50 >5 years low back pain. pain is daily pain is usually 5/10 and with 8/10 when bad. activity makes it worse. diclofenac can help. denies red flag symptoms - xray- pt Asthma 547199034 J45.90 9 refill Hyperlipidemia 38413480 E78.5 Screening colonoscopy 44 7777193 Z12.11 [id number] OSMAN KAPOOR [facility] [address] [place] [address] 08/12/2022 09:56:43 08/12/2022 10:02:16 [id number] OSMAN KAPOOR [facility] [address] [place] [address] 08/24/2022 10:50:58 08/24/2022 12:36:22 Immunization due 502636988 Z28.39 [id number] OSMAN KAPOOR [facility] [address] [place] [address] 10/18/2022 11:51:50 10/18/2022 12:30:14 Essential hypertension 24536327 I10 BP 120/74 today, controlled on amlodipine and combo losartan 50/HCTZ 12.5advise d pt to cut combo pill in halfc/w taking BP at homef/u if BP is not controlled , goal BP 130/80 Type 2 himanshu betes mellitus without complication 020857150 E11.9 6.9% (10/2022) 6.5 % (04/2022) 7.1% (09/2021) 10.6 (06/2021) medication regiment: victoza and switching to ozempic, jardiance 25mg Statin: atorvastat in 40mgfoot exam: normal 07/30/21pps v23: 07/30/21alb /cr: normal 04/2022eye exam: given order Menopausal syndrome 1237 22318 N95.9 improvemen t with effexor in anxiety and stressable to sleep through the nightwould like to continue Obesity 021752049 E66.9 NEH3588 LB WEIGHT GAINswitch to ozempic Hyperlipidemia 89516134 E78.5 screen Screening colonoscopy 44 9952322 Z12.11 [facility] if not covered with insurance Screening mammography 24 089182 Z12.31 mammogram 2019 normal Smoker 09542429 F17.200 approx 1 ppd since age 89 years pack hx Type 2 himanshu betes mellitus 27557629 E11.9 Chronic ob structive pulmonary disease 00674143 J44.9 History of malignant neoplasm of cervix 314581050 Z85.41 reminded to schedule wit obgyn [id number] OSMAN KAPOOR [facility] [address] [place] [address] 02/17/2023 10:41:47 02/17/2023 15:18:20 Essential hypertension 69323627 I10 BP 120/72 today, controlled on amlodipine and combo losartan 50/HCTZ 12.5c/w taking BP at homef/u if BP is not controlled , goal BP 130/80 Type 2 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 wants to try lifestyle and trulicity increase medication regiment: increase trulicity to 4.5mg, jardiance 25mg , Statin: atorvastat in 40mgfoot exam: normal 02/17/22pps v23: 07/30/21alb /cr: normal 04/2022eye exam: given order Menopausal syndrome 1237 17337 N95.9 improvemen t with effexor in anxiety and stressable to sleep through the nightwould like to continue Obesity 682080874 E66.9 BMI30.1 Hyperlipidemia 48749590 E78.5 screen Screening colonoscopy 44 4232742 Z12.11 has not scheduleds he agrees to call back if not covered with insurance Screening mammography 24 322728 Z12.31 mammogram 2019 normal Smoker 87908954 F17.200 approx 1 ppd since age 89 years pack hx Chronic ob structive pulmonary disease 67708859 J44.9 refill History of malignant neoplasm of cervix 566651545 Z85.41 reminded to schedule wit obgyn [id number] Kannan Casarez MD [facility] [address] [place] [address] 11/24/2023 11:01:54 11/24/2023 12:44:54 Screening mammography 43560453 Z12.31 mammogram 2019 normal Adult heal th examination 965051242 Z00.00 - ldct- obtain mammogram- need colon results- declined FLU- complete labs- refill venlafaxin e- PHQ negative- advised quitting smoking Menopausal syndrome 1237 42352 N95.9 improvemen t with effexor in anxiety and stressable to sleep through the nightwould like to continue Smoker 31119109 F17.200 approx 1 ppd since age 89 years pack hx Screening for malignant neoplasm of colon 221006493 Z12.11 completed 09/2023 [facility] [id number] Kannan Casarez MD [facility] [address] [place] [address] 02/20/2024 12:23:29 02/20/2024 16:52:07 Smoker 60881374 F17.200 approx 1 ppd since age 89 years pack hx Type 2 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 wants to try lifestyle and trulicity increase medication regiment: increase trulicity , jardiance 25mg , Statin: atorvastat in 40mgfoot exam: normal 02/17/22pps v23: 07/30/21alb /cr: normal 04/2022eye exam: given order Screening mammography 24 551840 Z12.31 mammogram 2019 normal Overweight 951817102 E66 .3 Hyperlipidemia 84421449 E78.5 doing well on statin 80mg (recently increased) and needs repeat lipids and liver fnfasting today Nodule of lung 271411269 R91.1 new lung nodule on LDCT, needs repeat in 6 months [id number] Kannan Casarez MD [facility] [address] [place] [address] 07/17/2024 10:10:01 07/17/2024 11:09:37 Essential hypertension 20179431 I10 controlled on amlodipine and combo losartan 50/HCTZ 12.5c/w taking BP at homef/u if BP is not controlled , goal BP 130/80 Smoker 10861324 F17.200 approx 1 ppd since age 89 years pack hxstopped smoking mar 2024 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 wants to try lifestyle and trulicity increase medication regiment: increase trulicity , jardiance 25mg , Statin: atorvastat in 40mgfoot exam: normal 02/17/22pps v23: 07/30/21alb /cr: normal 02/2023eye exam: advised scheduling Nodule of lung 367479517 R91.1 new lung nodule on LDCT, needs repeat in 6 months 02/2024: A 5 mm right upper lobe nodule appears slightly more densecompa red to the prior examinatio n (62). Other tiny right upper lobe nodulesare stable. Possible new 6 mm left upper lobe nodule (44). Previously a morelinear nodule was seen inferiorly within the left upper lobe in 2019. Overweight 521587797 E66 .3 Screening mammography 24 290441 Z12.31 mammogram 2019 normal Hyperlipidemia 38526196 E78.5 doing well on statin 80mg (recently increased) and needs repeat lipids and liver fnfasting today Menopausal syndrome 1237 54156 N95.9 improvemen t with effexor in anxiety and stressable to sleep through the nightwould like to continue Low back pain 974707846 M54.50 568304 >5 years low back pain. pain is daily pain is usually 5/10 and with 8/10 when bad. activity makes it worse. diclofenac can help. denies red flag symptoms - xray- pt Health Concerns Section Related Observation LastModified by Organization Detai ls LastModified Time None Recorded Concern Status LastModified by Organization Details LastModified Time None Recorded Advance Directives Directive N: Payers Insurance Date Sequence Insurance Name Policy Number Policy Sandoval Covered Member ID Sandoval Member ID Guarantor Name 07/23/2024 2 [place] [employer] Tameka Hackett [id number] Tameka Hackett 01/24/[address] [facility] [id number] Tameka Hackett [id number] Tameka Hackett 07/21/2024 1 [place] [facility] Tameka Hackett [id number] Tameka Francisa Hackett 08/12/2022 1 [employer] [place] ON [place] AFTER 2020 (MEDICAID REPLACEMENT - HMO) Tameka Carrera Hackett [id number] Tameka Katie Hackett 12/25/2018 1 [place] [facility] Tameka Carrera Hackett [id number] Tameka Francisa Hackett 12/25/2018 [facility] - DOS PRIOR TO 2020 (MEDICAID REPLACEMENT - HMO) Tameka Debi Hackett [id number] Tameka Wilson Hackett 10/18/2017 1 [facility] (MEDICAID HMO) Tameka Hackett [id number] Tameka Wilson Hackett 10/02/2020 1 [facility] - DOS PRIOR TO 2020 (MEDICAID REPLACEMENT - HMO) Tameka Carrera Hackett [id number] Tameka Francisa Hackett 07/17/2024 [place] [facility] Tameka Wilson Hackett [id number] Tameka Katie Hackett 07/23/2024 1 [employer] [place] ON [place] AFTER 2020 (MEDICAID REPLACEMENT - HMO) Tameka Wilson Hackett [id number] Tameka Katie Hackett 02/22/2023 2 [place] [facility] Tameka Hackett [id number] Tameka Katie Hackett Notes Date Note Type Note Provider Name and Address Organization Details Recorded Time 10/18/2022 text/html ROS as noted in the HPI Tameka is a 57 YO F smoker pmhxz cervical cancer s/p partial hysterectomy in 2004, vulvar squamous cell carcinoma, COPD, asthma, newly dx DM presenting for f/u on DM Reports her BP has been better with new medication- combo losartan/HCTZ pill.Pt states that her blood sugar is controlled. unable to get trulicity and currently on victoza daily. would like to get back on once weekly medication. would like to continue effexor mammogram: will schedulecolonoscopy: has not done scheduled. will do so this week. OSMAN KAPOOR Attn: Accounting,[address], [place], [address], [facility] 10/18/2022 13:50:02 02/17/2023 text/html ROS as noted in the HPI Tameka is a 57 YO F smoker pmhxz cervical cancer s/p partial hysterectomy in 2004, vulvar squamous cell carcinoma, COPD, asthma, newly dx DM presenting for f/u on DM Reports her BP has been better with new medication- combo losartan/HCTZ pill.Pt states not checking sugar. doing well on trulicity. she could not tolerate metformin. would like to continue effexor. mammogram: will schedulecolonoscopy: has not done scheduled. will do so this week.ldct: not scheduledobgyn: not scheduled OSMAN KAPOOR Attn: Accounting,[address] [facility], [place], [address], [facility] 02/17/2023 13:26:35 11/24/2023 text/html ROS as noted in the HPI Tameka is a 58 YO F smoker pmhxz cervical cancer s/p complete transabdominal hysterectomy in 2004, vulvar squamous cell carcinoma, COPD, asthma, DM presenting for f/u colonoscopy completed Dr rivera sep 30 [facility] and says it was normal. I do not have records. Reports her BP has been better with new medication- combo losartan/HCTZ pill. Pt states not checking sugar. She would be open to trulicity but not metformin if we were to add on medications. mammogram: will schedulecolonoscopy: completed, need recordsldct: not scheduledobgyn: not scheduled OSMAN KAPOOR Attn: Accounting,[address] [facility], [place], [address], [facility] 11/30/2023 07:31:59 02/20/2024 text/html ROS as noted in the HPI Tameka is a 58 YO F smoker pmhxz cervical cancer s/p complete transabdominal hysterectomy in 2004, vulvar squamous cell carcinoma, COPD, asthma, DM presenting for f/u on DM she has done well with trulciity and is okay increasing dose. denies s/e. colonoscopy [facility] and says it was normal. records now in file. mammogram: will schedulecolonoscopy: completedldct: repeat in 6 monthsobgyn: not scheduled OSMAN KAPOOR Attn: Accounting,[address] , [place], [address], [place] [facility] 02/20/2024 16:29:22 07/17/2024 text/html ROS as noted in the HPI Tameka is a 59 YO F smoker pmhxz cervical cancer s/p complete transabdominal hysterectomy in 2004, vulvar squamous cell carcinoma, COPD, asthma, DM presenting for f/u She complains of back pain for the last 5 years that she feels has recently worsened. She never got her x-ray from the last visit where we discussed her back pain. Symptoms continue to be the same. She denies saddle anesthesia or loss of control of her bowels or bladder. She is now open to physical therapy and obtaining her x-ray and following up. DM: she has done well with trulicity and is okay increasing dose. denies s/e.smoking: She quit smoking March 2024.mammogram: Did not schedule and needs a new orderLDCT: showed a new nodule in her lung in February 2024 needing a six-month follow up.She agrees to get this done order has been placed.obgyn: has not followed up OSMAN KAPOOR Attn: Accounting,[address] , [place], [address], [facility] 07/17/2024 14:39:51 OBGyn Episode No OBEpisode recorded.
--- OUTSIDE RECORDS SUMMARY | 2024-12-20 09:51 | XMS_ITS | Clinical Summary ---
Author Organization [facility] Address [address] [place] [address] Phone Care Team Providers Care Audit Director Name Role Phone Nickie Reyes Primary Care Provider [phone] Ramírez Up MD Unavailable [phone] Allergies No known active allergies Medications albuterol 108 (90 Base) MCG/ACT Aerosol Solution take 2 Puffs by inhalation as needed. 4 Active atorvastatin (LIPITOR) 40 MG Tablet Take 40 mg by mouth nightly. Active Trulicity 1.5 MG/0.5ML Solution Auto-injector 1.5 mg daily. 5 Active venlafaxine (EFFEXOR-XR) 75 MG CAPSULE SR 24 HR Take 75 mg by mouth daily. 5 Active losartan-hydroc hlorothiazide (HYZAAR) 50-12.5 MG Tablet Take 1 Tablet by mouth daily. 4 Active Jardiance 25 MG Tablet Take 25 mg by mouth daily. Active Symbicort 160-4.5 MCG/ACT Aerosol take 2 Puffs by inhalation 2 times daily. Active Multiple Vitamin (MULTI-VITAMIN PO) Take by mouth daily. 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 CUTTER Gender Identity Not on file Sexual Orientation Not on file Last Filed Vital Signs Vital Sign Reading Time Taken Comments Blood Pressure 120/78 02/20/2024 2:20 PM SLEEPER CUTTER Pulse 51 02/20/2024 2:20 PM SLEEPER CUTTER Temperature 37.1 C (98.8 F) 02/20/2024 2:20 PM SLEEPER CUTTER Respiratory Rate 18 02/20/2024 2:20 PM SLEEPER CUTTER Oxygen Saturation 99% 02/20/2024 2:20 PM SLEEPER CUTTER Inhaled Oxygen Concentration - - Weight 80.3 kg (177 lb) 02/20/2024 2:20 PM SLEEPER CUTTER Height 170.2 cm (5' 7) 02/20/2024 2:20 PM SLEEPER CUTTER Body Mass Index 27.72 02/20/2024 2:20 PM SLEEPER CUTTER Plan of Treatment Health Maintenance Due Date Last Done Comments Hepatitis C Virus (HCV) Screening 1967 Mammogram 1967 SARS-COV-2 Immunization (#1) 1972 Hepatitis B Immunization (1 of 3 - 19+ 3-dose series) 1986 08/24/2022 Zoster Immunization (1 of 2) 1986 Cologuard 2012 Immunochemical Fecal Occult Blood 2012 Respiratory Syncytial Virus (RSV) Immunization (Adult) (1 - Risk 50-74 years 1-dose series) 2017 Lung Cancer Screening 07/02/2020 07/03/2019 , 07/03/2019 Pneumococcal Immunization (5 0+ years) (2 of 2 - PCV) 07/30/2022 07/30/2021 Influenza Immunization (#1) 2024 Colonoscopy 09/29/2033 09/30/2023 Colorectal Cancer Screening 09/29/2033 TdaP Immunization Completed 10/18/2022 Human Papillomavirus (HPV) Immunization Aged Out No longer eligible b ased on patient's age to complete this topic Meningococcal Immunization (ACWY) Aged Out No longer eligible b ased on patient's age to complete this topic Rotavirus Immunization Aged Out No lo nger eligible based on patient's age to complete this topic Insurance [facility] Care Teams Audit Director Relationship Specialty Start Date End Date Nickie Reyes PAC [address] [place] [address] PCP - General Physician Electronics Maintenance Technician 01/27/24 Ramírez Up MD [address] [place] [address] Consulting Physician Oncology 01/27/24
[2024-12-20] MEDS: ALBUTEROL SULFATE NEB 2.5 MG/3 ML INH INHALATION (09:59)
[2024-12-20] MEDS: IPRATROPIUM BR 0.02% INH SOLN 0.5 MG/2.5 ML VIAL INHALATION (09:59)
== END 2024-12-20 10:29 | disposition home or self-care (01) ==
PROVIDERS: Emergency Provider Nurse Practitioner; PCP Physician Assistant
DX: J44.9 Chronic obstructive pulmonary disease, unspecified (principal); J18.9 Pneumonia, unspecified organism; F17.210 Nicotine dependence, cigarettes, uncomplicated; I10 Essential (primary) hypertension; E11.9 Type 2 diabetes mellitus without complications
CPT/HCPCS: 71046; 94640; 99213; G0463